=== PATIENT | male | born 1965 | race Caucasian/White ===

== ENCOUNTER 2016-09-13 11:50 | Emergency (ER) | payer BC ==
[~2016-09-13] VITALS: Ht 177.8 cm; Wt 99.5 kg
[~2016-09-13 11:50] MED LIST: IBUP-232 PO; LORTA5 PO
[2016-09-13 11:57] VITALS: BP 186/127; PULSE 96; RESP 16; TEMP 98; O2SAT 96
[2016-09-13] MEDS ORDERED: TRAM50TA PO (12:33)
--- NOTE | 2016-09-13 12:43 | PD ---
HPI Chief Complaint: Musculoskeletal Complaint Time Seen by Provider: 12:16 Travel History International Travel<30 days: No Contact w/Intl Traveler<30days: No Traveled to known affect area: No History of Present Illness HPI This patient complains of left knee pain. He has chronic left knee pain on a daily basis and says he has [id number] arthritis. He does see an orthopedist. No injury today. He discuss a flare of pain and came here because his orthopedist could not fit [facility] Past Medical History Medical History: Denies Significant Hx Hx Anticoagulant Therapy: No Diabetes: No Diminished Hearing: No Immunizations Current: Yes Tetanus Vaccination: < 5 Years Influenza Vaccination: No Past Surgical History Abdominal Surgery: No Social History Alcohol Use: Yes (1-2 BEERS/DAILY) Tobacco Use: Yes (1 1/2 PK) Substance Use: No Allergies-Medications (Allergen,Severity, Reaction): Coded Allergies: No Known Allergies (Verified , 09/13/16) Reported Meds & Prescriptions Reported Meds & Active Scripts Active Tramadol (Tramadol HCl) 50 Mg Tab 50 Mg PO Q6H PRN Review of Systems General / Constitutional: No: Fever HENT: No: Headaches Cardiovascular: No: Chest Pain or Discomfort Respiratory: No: Cough Physical Exam Narrative SKIN: Focused skin assessment reveals no rash or ulcers. Skin is warm and dry. Palpation shows no induration or nodules. Psych: Normal mood and affect. Normal insight and judgment. Left knee: Joint is stable. No erythema or ecchymosis. No effusion Data Data Last Documented VS Vital Signs Date Time Temp Pulse Resp B/P Pulse Ox O2 Delivery O2 Flow Rate FiO2 09/13/16 11:57 98.0 96 16 186/127 96 MDM Medical Decision Making Medical Screen Exam Complete: Yes Emergency Medical Condition: Yes Medical Record Reviewed: Yes Differential Diagnosis Arthritis, contusion, ligament strain Narrative Course I have reviewed the patient's electronic medical record. I wrote him some tramadol for symptom relief. Discussed supportive care such as ice and elevation etc. Follow-up with orthopedist Diagnosis Primary Impression: Arthritis of knee, left Additional Instructions: The patient was advised to follow up with their physician and return if they worsen. The patient was warned about potential sedation for the medications they will receive on prescription. Med/Other Pt SpecificInfo: Prescription(s) given Scripts Tramadol 50 Mg Tab50 Mg PO Q6H PRN (PAIN) #25 TAB Ref 0 Prov:Chriss Norton MD 09/13/16 Disposition: 01 DISCHARGE HOME Condition: Stable Chriss Norton MD September 13, 2016 12:43
[2016-10-26] MEDS ORDERED: WHEEMIS3 (08:28)
[2016-10-26] MEDS ORDERED: COMMODE 3-IN-11 MIS (08:28)
[2016-10-26] MEDS ORDERED: GETGO ROLLING W1 MI1 (08:28)
[2016-10-26] MEDS ORDERED: SENN1TAB PO (13:46)
[2016-10-26] MEDS ORDERED: VITA2000 PO (13:46)
[2016-10-26] MEDS ORDERED: CALCTAB19 PO (13:46)
[2016-10-26] MEDS ORDERED: METO25TA3 PO (13:46)
[2016-10-26] MEDS ORDERED: MORP1TAB25 PO (13:46)
[2016-10-26] MEDS ORDERED: METH500T3 PO (13:46)
[2016-10-26] MEDS ORDERED: OXYC-395 PO (13:46)
[2016-10-26] MEDS ORDERED: GABA600T PO (13:46)
[2016-10-26] MEDS ORDERED: LISI10TA3 PO (13:46)
== END 2016-09-13 12:59 | disposition home or self-care (01) ==
LOC: PHEFT 11:50
DX: M17.12 Unilateral primary osteoarthritis, left knee (principal)
CPT/HCPCS: 99283

== ENCOUNTER 2016-10-06 16:37 | Inpatient (IN) | payer BC, OTHER ==
[2016-10-06] VITALS (7 sets, daily range): BP systolic 148–184; BP diastolic 89–96; PULSE 89–96; RESP 18–31; TEMP 96.7–97.5; O2SAT 92–96
[~2016-10-06] VITALS: Ht 177.8 cm; Wt 104.2 kg
[~2016-10-06 16:37] MED LIST changes: -IBUP-232 PO; -LORTA5 PO; +TRAM50TA PO
[2016-10-06] MEDS ORDERED: DIPHTH/TETANUS/ACEL PERTUSSIS (BOOSTER) 0.5 ML VIAL/PFS IM ONE ×2 (16:44→19:33)
[2016-10-06] MEDS ORDERED: ceFAZolin 2 GM PREMIX 50 ML ONE (16:44)
[2016-10-06] MEDS ORDERED: LIDOCAINE 1%/EPINEPHrine 1:100,000 SOLN 20 ML VIAL ONE (16:48)
[2016-10-06] MEDS ORDERED: MIDAZOLAM HCL 5 MG/ML VIAL (1 ML) ONE (16:50)
[2016-10-06 17:21] LABS: AUTOMATED NEUTROPHIL # 6.5 TH/MM3 (1.8-7.7); BASOPHIL # 0.1 TH/MM3 (0-0.2); BASOPHIL % 0.9 % (0.0-2.0); EOSINOPHIL # 0.2 TH/MM3 (0-0.4); EOSINOPHIL % 1.9 % (0.0-4.0); HEMATOCRIT 43.4 % (39.0-51.0); LYMPH % 31.3 % (9.0-44.0); LYMPHOCYTE # 3.4 TH/MM3 (1.0-4.8); MEAN CELL VOLUME 91.4 FL (80.0-100.0); MEAN CORPUSCULAR HEMOGLOBIN 32.9 PG (27.0-34.0); MONO % 6.9 % (0.0-8.0); PLATELET COUNT 298 TH/MM3 (150-450); RED BLOOD COUNT 4.75 MIL/MM3 (4.50-5.90); RED CELL DISTRIBUTION WIDTH 14.2 % (11.6-17.2)
[2016-10-06 17:22] LABS: HEMO FLAGS AUTO DIFF
[2016-10-06 17:24] LABS: I-STAT POTASSIUM 4.9 MMOL/L (3.5-4.9)
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
[2016-10-06 17:42] LABS: APTT (PATIENT) 22.4 SEC (24.3-30.1); PROTHROMBIN TIME - PATIENT 10.7 SEC (9.8-11.6)
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
[2016-10-06] MEDS ORDERED: ACETAMINOPHEN/HYDROcodone 325 MG/5 MG TAB PO PRN (17:45)
[2016-10-06] MEDS ORDERED: MAGNESIUM HYDROXIDE SUSP 30 ML CUP PO PRN (17:45)
[2016-10-06] MEDS ORDERED: ONDANSETRON HCL 4 MG/2 ML VIAL IV PRN (17:45)
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
[2016-10-06] MEDS ORDERED: LIDOCAINE HCL 1% 50 ML VIAL INFIL ONE (18:00)
[2016-10-06] MEDS ORDERED: LIDOCAINE 1%/EPINEPHrine 1:100,000 SOLN 20 ML VIAL INFIL ONE (18:00)
[2016-10-06 18:06] LABS: PLATELET ESTIMATE SMEAR NORMAL (NORMAL); PLATELET MORPHOLOGY NORMAL (NORMAL); SCAN/DIFF AUTO DIFF CONFIRMED
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
[2016-10-06] MEDS ORDERED: IOHEXOL 350 MG/ML 10 ML VIAL (for RAD DIAG) IV ONE (18:19)
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
[2016-10-06] MEDS ORDERED: LIDOCAINE 1%/EPINEPHrine 1:100,000 SOLN 50 ML VIAL ONE (19:01)
[2016-10-06] MEDS ORDERED: ceFAZolin 2 GM PREMIX 50 ML IV STA (19:33)
[2016-10-06] MEDS: HYDROmorphone HCL PF 1 MG/ML VIAL IVP PRN ×2 (19:43→22:49)
--- NOTE | 2016-10-06 19:52 | PD ---
Physical Exam Narrative I was asked by Dr. Wong to repair patient's right forearm laceration. Please see her documentation for full H&P. Data Data Last Documented VS Vital Signs Date Time Temp Pulse Resp B/P Pulse Ox O2 Delivery O2 Flow Rate FiO2 10/06/16 18:48 97.5 89 18 154/89 96 Nasal Cannula 3 Orders Cefazolin 2 Gm Premix (Ancef 2 Gm Premix (10/06/16 16:44) Toaq-Uld-Ywskdf (Booster) Inj (Boostrix (10/06/16 16:44) Fentanyl Inj (Fentanyl Inj) (10/06/16 16:45) Lidocai-Epi 1%-1:100,000 Inj (Xylocaine- (10/06/16 16:48) Midazolam Inj (Versed Inj) (10/06/16 16:50) I-Stat Profile (10/06/16 16:56) I-Stat Creatinine (10/06/16 16:56) Complete Blood Count With Diff (10/06/16 16:56) Prothrombin Time / Inr (Pt) (10/06/16 16:56) Act Partial Throm Time (Ptt) (10/06/16 16:56) Type And Screen (10/06/16 16:56) Ct Brain W/O Iv Contrast(Rout) (10/06/16 16:56) Ct Cerv Spine W/O Contrast (10/06/16 16:56) Ct Abd/Pel W Iv Contrast(Rout) (10/06/16 16:56) Ct Thorax/ Chest W Iv Contrast (10/06/16 16:56) Ct Thor Spine W/O Contrast (10/06/16 16:56) Ct Lumb Spine W/O Contrast (10/06/16 16:56) Ct Facial Bones W/O Iv Cont (10/06/16 16:56) Iv Access Insert/Monitor (10/06/16 16:56) Ecg Monitoring (10/06/16 16:56) Oximetry (10/06/16 16:56) Oxygen Administration (10/06/16 16:56) Drug Screen, Random Urine (10/06/16 17:18) Alcohol (Ethanol) (10/06/16 17:18) Chest, Single Ap (10/06/16 ) Pelvis, Ap Only (Routine) (10/06/16 ) Forearm (2vws) (10/06/16 ) Ankle, Limited (Ap&Lat) (10/06/16 ) Elbow, One View (10/06/16 ) Splint Post Long Leg Ad Alum (10/06/16 ) Fiberglass Splint Elbow Adult (10/06/16 ) Sling Cradle Arm (10/06/16 ) Admit To Inpatient (10/06/16 ) Vital Signs (Adult) CHARLEE.QSHIFT (10/06/16 17:34) Intake + Output CHARLEE.Q8H (10/06/16 17:34) Neuro Checks CHARLEE.Q4H (10/06/16 17:34) Diet Npo (10/06/16 Dinner) Scd / Winston / Foot Pump CHARLEE.QSHIFT (10/06/16 17:34) Resp Incentive Spirometry (10/06/16 ) ^ Cervical Collar (10/06/16 17:34) ^ Instruction (10/06/16 17:34) Complete Blood Count With Diff (10/07/16 06:00) Comprehensive Metabolic Panel (10/07/16 06:00) Sodium Chlor 0.9% 1000 Ml Inj (Ns 1000 M (10/06/16 19:15) Sodium Chloride 0.9% Flush (Ns Flush) (10/06/16 17:45) Hydromorphone Pf Inj (Dilaudid Pf Inj) (10/06/16 17:45) Acetamin-Hydrocod 325-5 Mg (Loa 5-325 (10/06/16 17:45) Acetamin-Hydrocod 325-5 Mg (Loa 5-325 (10/06/16 17:45) Enalaprilat Inj (Vasotec Inj) (10/06/16 17:45) Ondansetron Inj (Zofran Inj) (10/06/16 17:45) Pantoprazole Inj (Protonix Inj) (10/06/16 20:00) Bacitracin Oint (Baciguent Oint) (10/06/16 21:00) Docusate Sodium (Colace) (10/06/16 21:00) Magnesium Hydroxide Liq (Milk Of Magnesi (10/06/16 17:45) Consult Orthopedic (10/06/16 ) Inpatient Certification (10/06/16 ) Consult Millie Gts (10/06/16 ) (Hub Use Only)Inp Phy Cons/Ref (10/06/16 ) Lidocaine 1% Inj (50 Ml) (Xylocaine 1% I (10/06/16 18:00) Lidocai-Epi 1%-1:100,000 Inj (Xylocaine- (10/06/16 18:00) Iohexol 350 Inj (Omnipaque 350 Inj) (10/06/16 18:19) Lidocai-Epi 1%-1:100,000 Inj (Xylocaine- (10/06/16 19:01) Admit Order (Ed Use Only) (10/06/16 19:02) Labs Laboratory Tests Test 10/06/16 16:44 White Blood Count 11.0 TH/MM3 Red Blood Count 4.75 MIL/MM3 Hemoglobin 15.6 GM/DL Bedside Hemoglobin 16.0 G/DL Hematocrit 43.4 % Bedside Hematocrit 47.0 % Mean Corpuscular Volume 91.4 FL Mean Corpuscular Hemoglobin 32.9 PG Mean Corpuscular Hemoglobin 36.0 % Concent Red Cell Distribution Width 14.2 % Platelet Count 298 TH/MM3 Mean Platelet Volume 8.5 FL Neutrophils (%) (Auto) 59.0 % Lymphocytes (%) (Auto) 31.3 % Monocytes (%) (Auto) 6.9 % Eosinophils (%) (Auto) 1.9 % Basophils (%) (Auto) 0.9 % Neutrophils # (Auto) 6.5 TH/MM3 Lymphocytes # (Auto) 3.4 TH/MM3 Monocytes # (Auto) 0.8 TH/MM3 Eosinophils # (Auto) 0.2 TH/MM3 Basophils # (Auto) 0.1 TH/MM3 CBC Comment AUTO DIFF Differential Comment AUTO DIFF CONFIRMED Platelet Estimate NORMAL Platelet Morphology Comment NORMAL Prothrombin Time 10.7 SEC Prothromb Time International 1.0 RATIO Ratio Activated Partial 22.4 SEC Thromboplast Time Bedside Sodium 138 MMOL/L Bedside Potassium 4.9 MMOL/L Bedside Chloride 101 MMOL/L Bedside Blood Urea Nitrogen 8 MG/DL Bedside Creatinine 1.3 MG/DL Bedside Glucose 130 MG/DL Ethyl Alcohol Level 120 MG/DL Blood Type O NEGATIVE Antibody Screen NEGATIVE MDM Supervised Visit with NABIL: No Narrative Course The patient suffered laceration to the right forearm. There was no evidence to suggest foreign bodies by history and exam. Visual and tactile exams were unremarkable. There was no evidence of neurovascular injury. The patient had a normal distal vascular exam, and had full normal motor and sensory exams. There was also no evidence or tendon injury, with normal distal full range of motions , flexion, extension, abduction, adduction and opponens. There was no evidence of local joint space involvement at this time. The patient was irrigated with copious sterile normal saline and primary repair was performed. Please see procedure note. The patient was given signs and symptom warnings for infection, such as increasing pain, redness, swelling, associated heat, pus or fever. The patient was warned of possible unseen foreign body and instructed to return immediately if signs or symptoms develop. The patient was given instructions for timely follow up and for removal. The patient agreed with plan of care. Procedures Procedure Narrative LACERATION REPAIR LOCATION: Right proximal forearm LENGTH: Approximately 11 cm irregularly shaped NUMBER OF STITCHES/RYNE: 15 [place] REPAIR: Verbal consent was obtained. The area of the laceration was cleaned and prepped. The laceration was infiltrated with lidocaine with epi. The wound was copiously irrigated and explored without evidence of foreign body, bony involvement, ligament injury, tendon injury, or neurovascular injury. The wound was closed using ryne. This was a single layer repair. A sterile dressing was applied by nurse. The patient was advised to keep the affected area as clean and dry as possible using soap and water. There were no complications. Patient tolerated the procedure well. Additional Instruction: Have ryne removed in 10-14 days Scripts No Active Prescriptions or Reported Meds Sim Mejia October 06, 2016 19:52
[2016-10-06] MEDS ORDERED: PANTOPRAZOLE SODIUM 40 MG VIAL IVP SCH (20:00)
[2016-10-06] MEDS ORDERED: DOCUSATE SODIUM 100 MG CAP PO SCH (21:00)
[2016-10-06] MEDS ORDERED: CYCLOBENZAPRINE HCL 10 MG TAB PO PRN (22:00)
[2016-10-06] MEDS: SODIUM CHLOR 0.9% 1000 ML INJ 1,000 ML IV SCH (22:04)
[2016-10-06] MEDS: ENALAPRILAT 1.25 MG/ML VIAL IV PRN (22:25)
[2016-10-06] MEDS ORDERED: LACTATED RINGER'S 1000 ML IV PRN (23:45)
[2016-10-06] MEDS ORDERED: CHLORHEXIDINE GLUCONATE 2 % 1 PACK (2 CLOTHS) TOPICAL PRN (23:45)
[2016-10-06] MEDS ORDERED: INSULIN HUMAN REGULAR 1,000 UNITS/10 ML VIAL SQ PRN (23:45)
[2016-10-06] MEDS ORDERED: POVIDONE IODINE 5% (ANTISEPSIS KIT) 4 APPLICATIONS EACH NARE PRN (23:45)
[2016-10-06] MEDS ORDERED: SODIUM CHLORID 0.9% 500 ML IV PRN (23:45)
[2016-10-06] MEDS: BACITRACIN TOP OINT 15 GM TUBE TOP SCH (23:55)
[2016-10-06] MEDS: ACETAMINOPHEN/HYDROcodone 325 MG/5 MG TAB PO PRN (23:55)
[2016-10-07 00:19] VITALS: BP 184/83; PULSE 90; RESP 19; TEMP 97.7; O2SAT 93
[2016-10-07 01:30] VITALS: BP 169/80; PULSE 86
[2016-10-07] MEDS: HYDROmorphone HCL PF 1 MG/ML VIAL IVP PRN ×5 (02:12→23:53)
[2016-10-07] MEDS: ACETAMINOPHEN/HYDROcodone 325 MG/5 MG TAB PO PRN ×3 (04:35→19:53)
[2016-10-07 06:06] LABS: AUTOMATED NEUTROPHIL # 11.5 TH/MM3 (1.8-7.7); BASOPHIL % 0.2 % (0.0-2.0); HEMATOCRIT 41.7 % (39.0-51.0); HEMO FLAGS DIFF FINAL; MEAN CELL VOLUME 93.1 FL (80.0-100.0); MEAN CORPUSCULAR HEMOGLOBIN 30.8 PG (27.0-34.0); MEAN CORPUSCULAR HGB CONC 33.1 % (32.0-36.0); MONO % 9.8 % (0.0-8.0); PLATELET COUNT 218 TH/MM3 (150-450); RED BLOOD COUNT 4.47 MIL/MM3 (4.50-5.90); WHITE BLOOD COUNT 13.8 TH/MM3 (4.0-11.0)
[2016-10-07] MEDS: SODIUM CHLOR 0.9% 1000 ML INJ 1,000 ML IV SCH (06:13)
[2016-10-07 06:18] LABS: ANION GAP 7 MEQ/L (5-15); AST (GOT) 172 U/L (15-37); BICARBONATE 27.4 MEQ/L (21.0-32.0); BLOOD UREA NITROGEN 9 MG/DL (7-18); CHLORIDE 104 MEQ/L (98-107); GLOMERULAR FILTRATION RATE 80 ML/MIN (>89); POTASSIUM 3.8 MEQ/L (3.5-5.1); SODIUM (NA) 138 MEQ/L (136-145)
[2016-10-07 06:19] LABS: ALT (GPT) 151 U/L (12-78)
[2016-10-07 06:21] LABS: ALKALINE PHOSPHATASE 90 U/L (45-117); TOTAL BILIRUBIN ADULT 0.7 MG/DL (0.2-1.0)
[2016-10-07 06:24] VITALS: BP 172/80; PULSE 87; RESP 19; TEMP 97.9; O2SAT 92
[2016-10-07 08:00] VITALS: BP 180/90; PULSE 78; RESP 20; TEMP 96.3; O2SAT 94
[2016-10-07] MEDS: REMOVE OLD LIDOCAINE PATCH T-DERMAL SCH (08:00)
[2016-10-07] MEDS ORDERED: PILL SPLITTER OTHER PRN (08:00)
[2016-10-07] MEDS: METHOCARBAMOL 500 MG TAB PO SCH ×3 (08:00→23:53)
[2016-10-07] MEDS: ENALAPRILAT 1.25 MG/ML VIAL IV PRN (08:40)
[2016-10-07] MEDS: LIDOCAINE HCL 5% PATCH T-DERMAL SCH (08:42)
[2016-10-07] MEDS: DOCUSATE SODIUM 50 MG/SENNA 8.6 MG TAB PO SCH ×2 (08:51→21:21)
[2016-10-07] MEDS: BACITRACIN TOP OINT 15 GM TUBE TOP SCH ×3 (08:51→21:21)
[2016-10-07] MEDS: LISINOPRIL 20 MG TAB PO SCH ×2 (09:00→14:51)
[2016-10-07] MEDS: hydrALAZINE HCL 25 MG TAB PO SCH ×3 (09:00→21:20)
[2016-10-07] MEDS ORDERED: FAMOTIDINE 20 MG/2 ML VIAL ONE (09:39)
[2016-10-07] MEDS ORDERED: HYDROmorphone HCL PF 2 MG/ML VIAL ONE (09:39)
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
[2016-10-07] MEDS ORDERED: ACETAMINOPHEN 1000 MG/100 ML VIAL IV ONE (09:53)
[2016-10-07] MEDS ORDERED: DEXAMETHASONE SOD PHOS 4 MG/ML VIAL ONE (09:53)
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
[2016-10-07] MEDS ORDERED: ceFAZolin 2 GM PREMIX 50 ML ONE (11:22)
[2016-10-07] MEDS ORDERED: PROPOFOL 200 MG/20 ML AMP IV ONE (11:47)
[2016-10-07] MEDS ORDERED: ONDANSETRON HCL 4 MG/2 ML VIAL IV PUSH ONE (11:47)
[2016-10-07] MEDS ORDERED: NEOSTIGMINE 3 MG/3 ML SYR IV ONE (11:47)
[2016-10-07] MEDS ORDERED: LACTATED RINGER'S 1000 ML INJ 1,000 ML IV ONE (11:47)
[2016-10-07] MEDS ORDERED: BACITRACIN TOP OINT 15 GM TUBE TOPICAL ONE (12:00)
[2016-10-07] MEDS: LACTATED RINGER'S 1000 ML INJ 1,000 ML IV SCH ×2 (12:17→22:20)
--- NOTE | 2016-10-07 12:20 | PD.OP ---
cc: Esvin Gonsalez MD Operative Report Date of Surgery: Oct 07, 2016 Preoperative Diagnosis: Comminuted left distal tibia and fibula fractures Postoperative Diagnosis: Procedure: External fixation left ankle, closed reduction with manipulation of left distal tibia and fibula fractures Anesthesia: Gen. Surgeon: Esvin Gonsalez Sole Conditioner(s): TIFF Villanueva PA-C The surgical procedure was assisted by my physician cashier assistant. My P.A. presence was necessary throughout this case for the manipulation and positioning of the surgical extremity. My P.A. was assisting me throughout the duration of this procedure. The skill set of a physician cashier assistant was medically necessary to complete this procedure. During the surgical case the surgical processor was working at the back table and the physician cashier assistant was directly assisting me. Operation and Findings: This patient sustained an injury resulting in unstable fractures of the left distal tibia and fibula. Patient was seen and evaluated preoperatively and found to have too much swelling to proceed with open reduction internal fixation. Risk and benefits of surgery were discussed in depth with patient and informed consent was confirmed. Surgical site was marked. Patient was brought to operating room and placed on the OR table. Patient was given IV sedation and GETA. Patient received IV antibiotics and timeout procedure was performed. Operative leg was prepped with alcohol followed by Hibiclens and draped in the usual sterile fashion.resulting in left tibia-fibula fractures. Timeout procedure was performed. The procedure began with placement of external fixation. Two percutaneous incisions were made over the tibia. Pin sites were pre-drilled. Synthes HAY- coated pins were placed from anterior to posterior in the tibia shaft. An additional transfixion pin was placed through the calcaneus. Pins were also placed in the first and fifth metatarsals. An external fixator was now constructed. Fluoroscopy was used to confirm appropriate pin placement Next attention was turned to traction with manipulation of the leg. The fracture was manipulated under fluoroscopy. Excellent reduction was achieved. With the fracture held in reduced position, the external fixator was tightened. Fluoroscopy confirmed a well-placed external fixation with well-aligned fractures. Sterile dressings were applied. The patient was awakened and transferred to Recovery in stable condition. The soft tissue was reevaluated. Patient did have swelling around the ankle and calf but compartments were soft and compressible with no signs of compartment syndrome. Esvin Gonsalez MD Oct 07, 2016 12:20
[2016-10-07] MEDS ORDERED: Post-op Orders (for Pharmacy) MISC XX ONE (12:30)
[2016-10-07] MEDS ORDERED: ACETAMINOPHEN/HYDROcodone 325 MG/7.5 MG TAB PO PRN (12:30)
[2016-10-07] MEDS ORDERED: diphenhydrAMINE HCL 25 MG CAP PO PRN (12:30)
[2016-10-07] MEDS ORDERED: SODIUM CHLORIDE 0.9% FLUSH 5 ML FLUSH IVF PRN (12:30)
[2016-10-07] MEDS ORDERED: MORPHINE SULFATE 4 MG/ML INJ IV PUSH PRN (12:30)
[2016-10-07] MEDS ORDERED: MIDAZOLAM HCL 2 MG/2 ML VIAL ONE (12:44)
[2016-10-07] MEDS ORDERED: fentaNYL CITRATE 250 MCG/5 ML AMP ONE (12:44)
[2016-10-07] MEDS ORDERED: LABETALOL HCL 100 MG/20 ML VIAL ONE (12:52)
[2016-10-07] MEDS ORDERED: *morphine SULFATE 8 MG/ML PERIprocedure ONLY ONE ×2 (12:53→13:31)
[2016-10-07] MEDS ORDERED: DO NOT ADM ANY ANTICOAGULANT DRUGS PRN (13:00)
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
[2016-10-07] MEDS: KETOROLAC TROMETHAMINE 30 MG/ML (IVP) VIAL IVP SCH ×2 (13:40→22:18)
--- NOTE | 2016-10-07 15:01 | HHI.PR ---
Subjective Subjective Notes S/P LEFT ankle reduction and placement of external fixator C/O left ankle pain Objective Vitals/I&O Vital Signs Date Time Temp Pulse Resp B/P Pulse Ox O2 Delivery O2 Flow Rate FiO2 10/07/16 12:40 96.8 83 15 203/89 95 Simple Mask 6 Labs Laboratory Tests Test 10/06/16 10/07/16 16:44 05:16 White Blood Count 11.0 13.8 Red Blood Count 4.75 4.47 Hemoglobin 15.6 13.8 Bedside Hemoglobin 16.0 Hematocrit 43.4 41.7 Bedside Hematocrit 47.0 Mean Corpuscular Volume 91.4 93.1 Mean Corpuscular Hemoglobin 32.9 30.8 Mean Corpuscular Hemoglobin 36.0 33.1 Concent Red Cell Distribution Width 14.2 14.0 Platelet Count 298 218 Mean Platelet Volume 8.5 8.4 Neutrophils (%) (Auto) 59.0 83.0 Lymphocytes (%) (Auto) 31.3 7.0 Monocytes (%) (Auto) 6.9 9.8 Eosinophils (%) (Auto) 1.9 0.0 Basophils (%) (Auto) 0.9 0.2 Neutrophils # (Auto) 6.5 11.5 Lymphocytes # (Auto) 3.4 1.0 Monocytes # (Auto) 0.8 1.4 Eosinophils # (Auto) 0.2 0.0 Basophils # (Auto) 0.1 0.0 CBC Comment AUTO DIFF DIFF FINAL Differential Comment AUTO DIFF CONFIRMED Platelet Estimate NORMAL Platelet Morphology Comment NORMAL Prothrombin Time 10.7 Prothromb Time International 1.0 Ratio Activated Partial 22.4 Thromboplast Time Bedside Sodium 138 Bedside Potassium 4.9 Bedside Chloride 101 Bedside Blood Urea Nitrogen 8 Bedside Creatinine 1.3 Bedside Glucose 130 Ethyl Alcohol Level 120 Blood Type O NEGATIVE Antibody Screen NEGATIVE Sodium Level 138 Potassium Level 3.8 Chloride Level 104 Carbon Dioxide Level 27.4 Anion Gap 7 Blood Urea Nitrogen 9 Creatinine 1.00 Estimat Glomerular Filtration 80 Rate Random Glucose 143 Calcium Level 7.8 Total Bilirubin 0.7 Aspartate Amino Transf 172 (AST/SGOT) Alanine Aminotransferase 151 (ALT/SGPT) Alkaline Phosphatase 90 Total Protein 6.4 Albumin 2.8 Radiology Last Impressions Chest X-Ray 10/07/16 0000 Signed Impressions: Service Date/Time: October 08:33 - CONCLUSION: No pneumothorax is visualized. Lungs are underinflated with mild atelectasis at the lung bases. Laureano Haynes MD Ankle X-Ray 10/07/16 0000 Signed Impressions: Service Date/Time: October 12:08 - CONCLUSION: Distal tibia and fibular fractures again seen. Taz Cárdenas MD Thoracic Spine CT 10/06/161655 Signed Impressions: Service Date/Time: Thursday, October 06, 2016 17:14 - CONCLUSION: 1. No fracture or dislocation. 2. 8 mm soft tissue nodule on the left neural foramen at T4. This likely relates to a small schwannoma. An outpatient followup MRI of the thoracic spine with and without gadolinium suggested. Gus Cornelius Jr., MD Maxillofacial CT 10/06/161655 Signed Impressions: Service Date/Time: Thursday, October 06, 2016 17:06 - CONCLUSION: No evidence of fracture. Taz Cárdenas MD Lumbar Spine CT 10/06/161655 Signed Impressions: Service Date/Time: Thursday, October 06, 2016 17:14 - CONCLUSION: 1. Mild multilevel degenerative disc disease with marginal spurring at multiple mid and lower lumbar levels. 2. No acute fracture. Minimal Grade I retrolisthesis of L5 on S1 is probably due to facet degeneration. 3. Mild, diffuse disc bulge at L4-5 with facet hypertrophy minimally encroaches on the spinal canal but the spinal canal and neural foramina appear to be adequate throughout. 4. Not mentioned above, mild ectasia of the distal aorta measuring 2.7 cm in the greatest AP dimension just above the bifurcation. No aneurysmal disease. Darryl Cordero MD Head CT 10/06/161655 Signed Impressions: Service Date/Time: Thursday, October 06, 2016 17:06 - CONCLUSION: No acute intracranial findings. Taz Cárdenas MD Chest CT 10/06/161655 Signed Impressions: Service Date/Time: Thursday, October 06, 2016 17:14 - CONCLUSION: Third and fifth rib fractures on the right. Very small right pneumothorax. Taz Cárdenas MD Cervical Spine CT 10/06/161655 Signed Impressions: Service Date/Time: Thursday, October 06, 2016 17:06 - CONCLUSION: No evidence of fracture. Taz Cárdenas MD Abdomen/Pelvis CT 10/06/161655 Signed Impressions: Service Date/Time: Thursday, October 06, 2016 17:14 - CONCLUSION: 1. Multiple rounded hypodensities in the right lobe of the liver. This finding is nonspecific and may represent multiple cysts, ductal dilatation or other hepatic lesions. Not a typical finding for acute traumatic injury. Recommend routine followup abdominal MRI with and without contrast. 2. No other acute findings in the abdomen and pelvis. Taz Cárdenas MD Radius/Ulna X-Ray 10/06/16 0000 Signed Impressions: Service Date/Time: Thursday, October 06, 2016 16:32 - CONCLUSION: Complete radial dislocation of the elbow joint. Darryl Cordero MD Pelvis X-Ray 10/06/16 0000 Signed Impressions: Service Date/Time: Thursday, October 06, 2016 16:32 - CONCLUSION: No acute osseous injury. Darryl Cordero MD Elbow X-Ray 10/06/16 0000 Signed Impressions: Service Date/Time: Thursday, October 06, 2016 16:32 - CONCLUSION: 1. Successful reduction of the previously dislocated elbow. 2. Radiopaque densities along the anterior aspect of the elbow joint may represent small avulsion fractures or radiopaque foreign bodies in the overlying soft tissues. Additional views would be useful for further evaluation if clinically warranted. Darryl Cordero MD Narrative Exam GENERAL: 50 year old male lying in bed. SKIN: Warm and dry. Scattered abrasions noted. CARDIOVASCULAR: Regular rate and rhythm. RESPIRATORY: No accessory muscle use. Clear and diminished to auscultation. Breath sounds equal bilaterally. GASTROINTESTINAL: Abdomen soft, non-tender, nondistended. MUSCULOSKELETAL: Extremities without cyanosis, or edema. LLE ex-fix in place. MARTINES. LUE soft splint in place. + pulses x4. NEUROLOGICAL: Awake and alert. Normal speech. A/P Assessment and Plan INJURIES: LEFT tib/fib fx RIGHT rib fxs (3,4) Small RIGHT PTX RIGHT forearm avulsion (sutures) LEFT elbow dislocation 10/06 LEFT elbow reduced 10/07: LEFT ankle reduction and placement of external fixator PMHx: Tobacco abuse, HTN Diet: NPO Pulm: IS, encouraged use Pain: [place], IV Dilaudid, Robaxin, Lidoderm patch, IV Toradol Activity: OOB. PT and OT ordered. (NWB LUE, NWB LLE) GI: IV Protonix Bowel: Mara-colace 2 tabs BID, MOM. DVT: SCDs LEFT tib/fib fx Orthopedics consulted 10/07: LEFT ankle reduction and placement of external fixator Pin care BID Ortho plans ORIF of the ankle in 7-10 days NWB LLE PT- OOB Pain control RIGHT rib fxs (3,4) Pain control Supportive care Pulmonary toileting OOB Small RIGHT PTX Resolved without intervention CXR today shows no PTX, mild atelectasis Pulmonary toileting RIGHT forearm avulsion Cleanse with soap and water daily. May leave open to air, unless draining LEFT elbow dislocation Reduced in ED F/U X-ray shows good alignment NWB LUE- splint Supportive care Pain control OT HTN No known hx per patient Started Lisinopril and Hydralazine. Reassess in AM Pain control Case management consulted to assist with discharge planning. Vinny De Jesus Oct 07, 2016 15:01
[2016-10-07] MEDS ORDERED: hydrALAZINE HCL 20 MG/ML VIAL IV ONE (15:30)
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
--- NOTE | 2016-10-07 15:47 | RADRPT ---
EXAM DATE/TIME: 10/07/2016 12:08 [place] COMPARISON: ANKLE LEFT LIMITED (AP&LAT), October 06, 2016, 16:32. INDICATIONS : Left ankle fracture external fixation. MEDICAL HISTORY : None. SURGICAL HISTORY : None. ENCOUNTER: Initial ACUITY: 1 day PAIN SCORE: Non-responsive. LOCATION: Left ankle FINDINGS: 2 intraoperative spot images of the left ankle. Comminuted fracture of the distal tibia and fracture of the distal tibial shaft again seen. CONCLUSION: Distal tibia and fibular fractures again seen. Taz Cárdenas MD on October 07, 2016 at 15:44 Board Certified Radiologist. This report was verified electronically.
[2016-10-07 16:00] VITALS: BP 171/86; PULSE 90; RESP 20; TEMP 99.3; O2SAT 97
[2016-10-07 16:13] LABS: AMPHETAMINE, URINE NEG (NEG); BARBITURATES, URINE NEG (NEG); COCAINE, URINE NEG (NEG)
[2016-10-07 20:12] VITALS: BP 156/81; PULSE 88; RESP 18; TEMP 96.7; O2SAT 93
[2016-10-07] MEDS: SODIUM CHLORIDE 0.9% FLUSH 5 ML FLUSH IVF SCH (21:00)
[2016-10-07] MEDS: FAMOTIDINE 20 MG TAB PO SCH (21:20)
[2016-10-08] VITALS (12 sets, daily range): BP systolic 171–218; BP diastolic 84–95; PULSE 74–89; RESP 17–20; TEMP 96.8–98.5; O2SAT 92–96
[2016-10-08] MEDS: ENALAPRILAT 1.25 MG/ML VIAL IV PRN (00:43)
[2016-10-08] MEDS: ACETAMINOPHEN/HYDROcodone 325 MG/5 MG TAB PO PRN ×4 (03:31→21:59)
[2016-10-08 04:13] LABS: HEMATOCRIT 37.6 % (39.0-51.0); REVIEW FLAG FINAL
[2016-10-08] MEDS: KETOROLAC TROMETHAMINE 30 MG/ML (IVP) VIAL IVP SCH ×3 (05:50→22:58)
--- NOTE | 2016-10-08 07:51 | PD.ORT.PN ---
Subjective Subjective Remarks Pain controlled. No new complaints Objective Vitals Vital Signs Date Time Temp Pulse Resp B/P Pulse Ox O2 Delivery O2 Flow Rate FiO2 10/08/16 04:15 97.4 82 18 175/90 95 10/08/16 01:35 84 171/84 10/08/16 00:30 189/90 10/08/16 00:00 97.9 89 17 192/92 95 10/07/16 20:12 96.7 88 18 156/81 93 10/07/16 16:00 99.3 90 20 171/86 97 10/07/16 14:00 98.1 83 17 171/92 95 Nasal Cannula 3 10/07/16 13:45 81 17 182/89 94 Nasal Cannula 3 10/07/16 13:30 85 17 172/94 94 Nasal Cannula 3 10/07/16 13:15 81 17 164/90 95 Nasal Cannula 3 10/07/16 13:00 82 17 171/93 93 Nasal Cannula 3 10/07/16 12:45 83 15 187/92 93 Simple Mask 6 10/07/16 12:40 96.8 83 15 203/89 95 Simple Mask 6 10/07/16 08:00 96.3 78 20 180/90 94 I/O 10/07/16 10/07/16 10/07/16 10/08/16 10/08/16 10/08/16 07:00 15:00 23:00 07:00 15:00 23:00 Intake Total 779 ml 2000 ml 1288 ml 550 ml Output Total 0 ml 550 ml 550 ml 475 ml Balance 779 ml 1450 ml 738 ml 75 ml Intake Oral 0 ml 600 ml 240 ml IV Total 779 ml 500 ml 688 ml 310 ml Other 1500 ml Output Urine Total 0 ml 550 ml 550 ml 475 ml # Voids 3 2 # Bowel Movements 0 0 0 Result Diagram: 10/08/16 0353 10/07/16 0516 Imaging Last 24 hours Impressions Chest X-Ray 10/07/16 0000 Signed Impressions: Service Date/Time: October 08:33 - CONCLUSION: No pneumothorax is visualized. Lungs are underinflated with mild atelectasis at the lung bases. Laureano Haynes MD Thoracic Spine CT 10/06/16 1656 Signed Impressions: Service Date/Time: Thursday, October 06, 2016 17:14 - CONCLUSION: 1. No fracture or dislocation. 2. 8 mm soft tissue nodule on the left neural foramen at T4. This likely relates to a small schwannoma. An outpatient followup MRI of the thoracic spine with and without gadolinium suggested. Gus Cornelius Jr., MD Maxillofacial CT 10/06/161655 Signed Impressions: Service Date/Time: Thursday, October 06, 2016 17:06 - CONCLUSION: No evidence of fracture. Taz Cárdenas MD Lumbar Spine CT 10/06/161655 Signed Impressions: Service Date/Time: Thursday, October 06, 2016 17:14 - CONCLUSION: 1. Mild multilevel degenerative disc disease with marginal spurring at multiple mid and lower lumbar levels. 2. No acute fracture. Minimal Grade I retrolisthesis of L5 on S1 is probably due to facet degeneration. 3. Mild, diffuse disc bulge at L4-5 with facet hypertrophy minimally encroaches on the spinal canal but the spinal canal and neural foramina appear to be adequate throughout. 4. Not mentioned above, mild ectasia of the distal aorta measuring 2.7 cm in the greatest AP dimension just above the bifurcation. No aneurysmal disease. Darryl Cordero MD Head CT 10/06/161655 Signed Impressions: Service Date/Time: Thursday, October 06, 2016 17:06 - CONCLUSION: No acute intracranial findings. Taz Cárdenas MD Chest CT 10/06/161655 Signed Impressions: Service Date/Time: Thursday, October 06, 2016 17:14 - CONCLUSION: Third and fifth rib fractures on the right. Very small right pneumothorax. Taz Cárdenas MD Cervical Spine CT 10/06/161655 Signed Impressions: Service Date/Time: Thursday, October 06, 2016 17:06 - CONCLUSION: No evidence of fracture. Taz Cárdenas MD Abdomen/Pelvis CT 10/06/161655 Signed Impressions: Service Date/Time: Thursday, October 06, 2016 17:14 - CONCLUSION: 1. Multiple rounded hypodensities in the right lobe of the liver. This finding is nonspecific and may represent multiple cysts, ductal dilatation or other hepatic lesions. Not a typical finding for acute traumatic injury. Recommend routine followup abdominal MRI with and without contrast. 2. No other acute findings in the abdomen and pelvis. Taz Cárdenas MD Objective Remarks Left upper extremity: Long arm splint intact. Distally intact sensation over the radial ulnar and median nerve distributions with good capillary refills. He is able to extend his fingers and make a fist. Left lower extremity: Clean dressings intact with external fixator in place. Swelling +2. Intact sensation distally in all his toes and is able to move all toes appropriately Assessment & Plan Assessment and Plan Left tibial pilon fracture POD 1 external fixation Left elbow dislocation - reduced in the emergency room and splinted Nonweightbearing left lower extremity left upper extremity Maintain splint left upper extremity Pin care twice a day for left ankle Ice and elevation Lovenox Nothing by mouth after midnight on Tuesday night for possible surgery on Tuesday for left tibial pilon fracture Julio Moses Jr. DIANE Oct 08, 2016 07:51
[2016-10-08] MEDS: REMOVE OLD LIDOCAINE PATCH T-DERMAL SCH (08:00)
[2016-10-08] MEDS: METHOCARBAMOL 500 MG TAB PO SCH ×2 (08:32→16:29)
[2016-10-08] MEDS: SODIUM CHLORIDE 0.9% FLUSH 5 ML FLUSH IVF SCH ×2 (08:32→21:00)
[2016-10-08] MEDS: hydrALAZINE HCL 25 MG TAB PO SCH (08:32)
[2016-10-08] MEDS: FAMOTIDINE 20 MG TAB PO SCH ×2 (08:32→21:58)
[2016-10-08] MEDS: LISINOPRIL 20 MG TAB PO SCH (08:32)
[2016-10-08] MEDS: LIDOCAINE HCL 5% PATCH T-DERMAL SCH (08:33)
[2016-10-08] MEDS: DOCUSATE SODIUM 50 MG/SENNA 8.6 MG TAB PO SCH ×2 (08:36→21:58)
[2016-10-08] MEDS: BACITRACIN TOP OINT 15 GM TUBE TOP SCH ×2 (08:37→22:58)
[2016-10-08] MEDS: HYDROmorphone HCL PF 1 MG/ML VIAL IVP PRN ×3 (11:50→22:58)
[2016-10-08] MEDS: hydrALAZINE HCL 50 MG TAB PO SCH ×2 (13:13→21:58)
--- NOTE | 2016-10-08 13:20 | HHI.PR ---
Subjective Subjective Notes Reports his "BP has been xuan high in the past, but not too bad" Pain controlled Objective Vitals/I&O Vital Signs Date Time Temp Pulse Resp B/P Pulse Ox O2 Delivery O2 Flow Rate FiO2 10/08/16 12:20 18 10/08/16 08:00 98.5 82 186/90 95 10/07/16 14:00 Nasal Cannula 3 Labs Laboratory Tests Test 10/07/16 10/08/16 15:30 03:53 Urine Opiates Screen POS Urine Barbiturates Screen NEG Urine Amphetamines Screen NEG Urine Benzodiazepines Screen POS Urine Cocaine Screen NEG Urine Cannabinoids Screen NEG Hemoglobin 12.8 Hematocrit 37.6 Radiology Last Impressions Chest X-Ray 10/07/16 0000 Signed Impressions: Service Date/Time: October 08:33 - CONCLUSION: No pneumothorax is visualized. Lungs are underinflated with mild atelectasis at the lung bases. Laureano Haynes MD Ankle X-Ray 10/07/16 0000 Signed Impressions: Service Date/Time: October 12:08 - CONCLUSION: Distal tibia and fibular fractures again seen. Taz Cárdenas MD Thoracic Spine CT 10/06/161655 Signed Impressions: Service Date/Time: Thursday, October 06, 2016 17:14 - CONCLUSION: 1. No fracture or dislocation. 2. 8 mm soft tissue nodule on the left neural foramen at T4. This likely relates to a small schwannoma. An outpatient followup MRI of the thoracic spine with and without gadolinium suggested. Gus Cornelius Jr., MD Maxillofacial CT 10/06/161655 Signed Impressions: Service Date/Time: Thursday, October 06, 2016 17:06 - CONCLUSION: No evidence of fracture. Taz Cárdenas MD Lumbar Spine CT 10/06/161655 Signed Impressions: Service Date/Time: Thursday, October 06, 2016 17:14 - CONCLUSION: 1. Mild multilevel degenerative disc disease with marginal spurring at multiple mid and lower lumbar levels. 2. No acute fracture. Minimal Grade I retrolisthesis of L5 on S1 is probably due to facet degeneration. 3. Mild, diffuse disc bulge at L4-5 with facet hypertrophy minimally encroaches on the spinal canal but the spinal canal and neural foramina appear to be adequate throughout. 4. Not mentioned above, mild ectasia of the distal aorta measuring 2.7 cm in the greatest AP dimension just above the bifurcation. No aneurysmal disease. Darryl Cordero MD Head CT 10/06/161655 Signed Impressions: Service Date/Time: Thursday, October 06, 2016 17:06 - CONCLUSION: No acute intracranial findings. Taz Cárdenas MD Chest CT 10/06/161655 Signed Impressions: Service Date/Time: Thursday, October 06, 2016 17:14 - CONCLUSION: Third and fifth rib fractures on the right. Very small right pneumothorax. Taz Cárdenas MD Cervical Spine CT 10/06/161655 Signed Impressions: Service Date/Time: Thursday, October 06, 2016 17:06 - CONCLUSION: No evidence of fracture. Taz Cárdenas MD Abdomen/Pelvis CT 10/06/161655 Signed Impressions: Service Date/Time: Thursday, October 06, 2016 17:14 - CONCLUSION: 1. Multiple rounded hypodensities in the right lobe of the liver. This finding is nonspecific and may represent multiple cysts, ductal dilatation or other hepatic lesions. Not a typical finding for acute traumatic injury. Recommend routine followup abdominal MRI with and without contrast. 2. No other acute findings in the abdomen and pelvis. Taz Cárdenas MD Radius/Ulna X-Ray 10/06/16 Signed Impressions: Service Date/Time: Thursday, October 06, 2016 16:32 - CONCLUSION: Complete radial dislocation of the elbow joint. Darryl Cordero MD Pelvis X-Ray 10/06/16 Signed Impressions: Service Date/Time: Thursday, October 06, 2016 16:32 - CONCLUSION: No acute osseous injury. Darryl Cordero MD Elbow X-Ray 10/06/16 Signed Impressions: Service Date/Time: Thursday, October 06, 2016 16:32 - CONCLUSION: 1. Successful reduction of the previously dislocated elbow. 2. Radiopaque densities along the anterior aspect of the elbow joint may represent small avulsion fractures or radiopaque foreign bodies in the overlying soft tissues. Additional views would be useful for further evaluation if clinically warranted. Darryl Cordero MD Narrative Exam GENERAL: 50 year old male lying in bed in no acute distress. SKIN: Warm and dry. Scattered abrasions noted to LEFT face. Bulky dry dressing to head. CARDIOVASCULAR: Regular rate and rhythm. RESPIRATORY: No accessory muscle use. Clear and diminished to auscultation. Breath sounds equal bilaterally. GASTROINTESTINAL: Abdomen soft, non-tender, nondistended. MUSCULOSKELETAL: Extremities without cyanosis, or edema. LLE ex-fix in place. MARTINES. LUE soft splint in place. + pulses x4. NEUROLOGICAL: Awake and alert. Normal speech. A/P Assessment and Plan INJURIES: LEFT tib/fib fx RIGHT rib fxs (3,4) Small RIGHT PTX RIGHT forearm avulsion (sutures) LEFT elbow dislocation 10/06 LEFT elbow reduced 10/07: LEFT ankle reduction and placement of external fixator PMHx: Tobacco abuse, HTN Diet: Regular Pulm: IS, encouraged use Pain: [place], IV Dilaudid, Robaxin, Lidoderm patch, IV Toradol Activity: OOB. PT and OT ordered. (NWB LUE, NWB LLE) GI: IV Protonix Bowel: Mara-colace 2 tabs BID, MOM. No BM yet. DVT: SCDs LEFT tib/fib fx Orthopedics consulted 10/07: LEFT ankle reduction and placement of external fixator Pin care BID Ortho plans ORIF of the ankle in 7-10 days NWB LLE PT- OOB Pain control RIGHT rib fxs (3,4) Pain control Supportive care Pulmonary toileting OOB Small RIGHT PTX Resolved without intervention 10/07: CXR shows no PTX, mild atelectasis Pulmonary toileting RIGHT forearm avulsion Cleanse with soap and water daily. May leave open to air, unless draining LEFT elbow dislocation Reduced in ED F/U X-ray shows good alignment NWB LUE- splint Supportive care Pain control OT HTN No home HTN meds Lisinopril 20mg QD Increased Hydralazine to 50mg q8 Hospitalist consult for medical management Pain control Case management consulted to assist with discharge planning. The exam, history, and the medical decision-making described in the above note were completed with the assistance of the mid-level provider. I reviewed and agree with the findings presented. I attest that I had a [id number] encounter with the patient on the same day, and personally performed and documented my assessment and findings in the medical record. Vinny De Jesus Oct 08, 2016 13:20 Steven Eldridge MD Oct 09, 2016 14:05
[2016-10-08] MEDS ORDERED: METOPROLOL TARTRATE 25 MG TAB PO ONE (16:30)
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
[2016-10-08] MEDS: ENALAPRILAT 2.5 MG/2 ML VIAL IV PUSH PRN (18:04)
[2016-10-08] MEDS: ENOXAPARIN SODIUM 40 MG/0.4 ML SYRINGE SQ SCH (19:32)
[2016-10-08 21:50] LABS: AUTOMATED NEUTROPHIL # 9.4 TH/MM3 (1.8-7.7); BASOPHIL # 0.1 TH/MM3 (0-0.2); EOSINOPHIL # 0.1 TH/MM3 (0-0.4); EOSINOPHIL % 1.1 % (0.0-4.0); HEMATOCRIT 35.9 % (39.0-51.0); HEMO FLAGS DIFF FINAL; LYMPH % 13.7 % (9.0-44.0); LYMPHOCYTE # 1.7 TH/MM3 (1.0-4.8); MEAN CELL VOLUME 91.6 FL (80.0-100.0); MEAN CORPUSCULAR HEMOGLOBIN 31.2 PG (27.0-34.0); MEAN CORPUSCULAR HGB CONC 34.1 % (32.0-36.0); NEUT % 76.2 % (16.0-70.0); PLATELET COUNT 221 TH/MM3 (150-450); RED BLOOD COUNT 3.92 MIL/MM3 (4.50-5.90); RED CELL DISTRIBUTION WIDTH 14.2 % (11.6-17.2); WHITE BLOOD COUNT 12.4 TH/MM3 (4.0-11.0)
[2016-10-08] MEDS: METOPROLOL TARTRATE 25 MG TAB PO SCH (21:58)
[2016-10-08] MEDS: SODIUM CHLORIDE 0.9% FLUSH 10 ML FLUSH IV FLUSH PRN (21:59)
[2016-10-08 22:36] LABS: HEMOGLOBIN A1a 1.5 %; HEMOGLOBIN A1b 0.8 %; HEMOGLOBIN Ao 84.3 %; HEMOGLOBIN F 1.5 %; HEMOGLOBIN LA1C 2.2 %; HEMOGLOBIN P3 3.8 %
[2016-10-09] VITALS (8 sets, daily range): BP systolic 105–228; BP diastolic 88–109; PULSE 61–80; RESP 16–22; TEMP 96–97.8; O2SAT 92–95
[2016-10-09] MEDS: hydrALAZINE HCL 10 MG TAB PO PRN ×2 (02:01→14:51)
[2016-10-09] MEDS: METHOCARBAMOL 500 MG TAB PO SCH ×4 (02:01→23:48)
[2016-10-09] MEDS: ACETAMINOPHEN/HYDROcodone 325 MG/5 MG TAB PO PRN ×5 (02:02→18:42)
[2016-10-09] MEDS: HYDROmorphone HCL PF 1 MG/ML VIAL IVP PRN ×4 (04:28→21:36)
[2016-10-09] MEDS: ENALAPRILAT 2.5 MG/2 ML VIAL IV PUSH PRN ×2 (04:29→11:40)
[2016-10-09] MEDS: KETOROLAC TROMETHAMINE 30 MG/ML (IVP) VIAL IVP SCH (06:46)
[2016-10-09] MEDS: hydrALAZINE HCL 50 MG TAB PO SCH ×3 (06:47→21:35)
[2016-10-09 07:06] LABS: ALT (GPT) 77 U/L (12-78)
[2016-10-09 07:08] LABS: ALKALINE PHOSPHATASE 75 U/L (45-117); ANION GAP 5 MEQ/L (5-15); BICARBONATE 28.9 MEQ/L (21.0-32.0); BLOOD UREA NITROGEN 14 MG/DL (7-18); CHLORIDE 106 MEQ/L (98-107); GLOMERULAR FILTRATION RATE 92 ML/MIN (>89); HDL CHOLESTEROL 39.5 MG/DL (40.0-60.0); LDL CHOLESTEROL 81 MG/DL (0-99); SODIUM (NA) 140 MEQ/L (136-145); TOTAL BILIRUBIN ADULT 0.6 MG/DL (0.2-1.0)
[2016-10-09 07:09] LABS: AST (GOT) 69 U/L (15-37); POTASSIUM 4.2 MEQ/L (3.5-5.1)
--- NOTE | 2016-10-09 07:44 | PD.ORT.PN ---
Subjective Subjective Remarks pt complains of post op pain, no other complaints Objective Vitals Vital Signs Date Time Temp Pulse Resp B/P Pulse Ox O2 Delivery O2 Flow Rate FiO2 10/09/16 04:00 97.2 61 16 196/91 94 10/08/16 23:48 97.0 74 19 218/93 92 10/08/16 19:57 18 10/08/16 19:40 Room Air 10/08/16 19:00 97.2 74 18 204/93 95 10/08/16 17:30 18 10/08/16 16:37 95 Nasal Cannula 3.00 10/08/16 16:00 96.9 82 20 182/85 96 10/08/16 14:13 18 10/08/16 14:06 95 Nasal Cannula 3.00 10/08/16 13:15 178/88 10/08/16 13:00 96.8 89 20 205/95 94 10/08/16 08:00 98.5 82 20 186/90 95 I/O 10/08/16 10/08/16 10/08/16 10/09/16 10/09/16 10/09/16 07:00 15:00 23:00 07:00 15:00 23:00 Intake Total 550 ml 840 ml 480 ml 480 ml Output Total 475 ml 200 ml 350 ml 450 ml Balance 75 ml 640 ml 130 ml 30 ml Intake Oral 240 ml 840 ml 480 ml 480 ml IV Total 310 ml Output Urine Total 475 ml 200 ml 350 ml 450 ml # Voids 4 # Bowel Movements 0 0 0 Result Diagram: 10/08/16205410/09/16 0609 Imaging Last 24 hours Impressions Chest X-Ray 10/07/16 0000 Signed Impressions: Service Date/Time: October 08:33 - CONCLUSION: No pneumothorax is visualized. Lungs are underinflated with mild atelectasis at the lung bases. Laureano Haynes MD Thoracic Spine CT 10/06/16 165 Signed Impressions: Service Date/Time: Thursday, October 06, 2016 17:14 - CONCLUSION: 1. No fracture or dislocation. 2. 8 mm soft tissue nodule on the left neural foramen at T4. This likely relates to a small schwannoma. An outpatient followup MRI of the thoracic spine with and without gadolinium suggested. Gus Cornelius Jr., MD Maxillofacial CT 10/06/161655 Signed Impressions: Service Date/Time: Thursday, October 06, 2016 17:06 - CONCLUSION: No evidence of fracture. Taz Cárdenas MD Lumbar Spine CT 10/06/161655 Signed Impressions: Service Date/Time: Thursday, October 06, 2016 17:14 - CONCLUSION: 1. Mild multilevel degenerative disc disease with marginal spurring at multiple mid and lower lumbar levels. 2. No acute fracture. Minimal Grade I retrolisthesis of L5 on S1 is probably due to facet degeneration. 3. Mild, diffuse disc bulge at L4-5 with facet hypertrophy minimally encroaches on the spinal canal but the spinal canal and neural foramina appear to be adequate throughout. 4. Not mentioned above, mild ectasia of the distal aorta measuring 2.7 cm in the greatest AP dimension just above the bifurcation. No aneurysmal disease. Darryl Cordero MD Head CT 10/06/161655 Signed Impressions: Service Date/Time: Thursday, October 06, 2016 17:06 - CONCLUSION: No acute intracranial findings. Taz Cárdenas MD Chest CT 10/06/161655 Signed Impressions: Service Date/Time: Thursday, October 06, 2016 17:14 - CONCLUSION: Third and fifth rib fractures on the right. Very small right pneumothorax. Taz Cárdenas MD Cervical Spine CT 10/06/161655 Signed Impressions: Service Date/Time: Thursday, October 06, 2016 17:06 - CONCLUSION: No evidence of fracture. Taz Cárdenas MD Abdomen/Pelvis CT 10/06/161655 Signed Impressions: Service Date/Time: Thursday, October 06, 2016 17:14 - CONCLUSION: 1. Multiple rounded hypodensities in the right lobe of the liver. This finding is nonspecific and may represent multiple cysts, ductal dilatation or other hepatic lesions. Not a typical finding for acute traumatic injury. Recommend routine followup abdominal MRI with and without contrast. 2. No other acute findings in the abdomen and pelvis. Taz Cárdenas MD Objective Remarks seen by Dr. Yo Stanton Left upper extremity: Long arm splint intact. Distally intact sensation over the radial ulnar and median nerve distributions with good capillary refills Left lower extremity: Clean dressings intact with external fixator in place. Swelling +2. Intact sensation distally in all his toes and is able to move all toes appropriately Assessment & Plan Assessment and Plan Left tibial pilon fracture POD #2 external fixation Left elbow dislocation - reduced in the emergency room and splinted Nonweightbearing left lower extremity; left upper extremity Maintain splint left upper extremity Pin care twice a day for left ankle Ice and elevation Lovenox Nothing by mouth after midnight on Tuesday night for possible surgery on Tuesday for left tibial pilon fracture Malou Suazo Oct 09, 2016 07:44
[2016-10-09] MEDS: REMOVE OLD LIDOCAINE PATCH T-DERMAL SCH (08:00)
[2016-10-09] MEDS: LACTULOSE SYRUP 20 GM/30 ML CUP PO SCH (08:51)
[2016-10-09] MEDS: ENOXAPARIN SODIUM 40 MG/0.4 ML SYRINGE SQ SCH (08:52)
[2016-10-09] MEDS: LIDOCAINE HCL 5% PATCH T-DERMAL SCH (08:54)
[2016-10-09] MEDS: LISINOPRIL 20 MG TAB PO SCH (08:55)
[2016-10-09] MEDS: DOCUSATE SODIUM 50 MG/SENNA 8.6 MG TAB PO SCH ×2 (08:55→21:35)
[2016-10-09] MEDS: METOPROLOL TARTRATE 25 MG TAB PO SCH ×2 (08:55→21:35)
[2016-10-09] MEDS: SODIUM CHLORIDE 0.9% FLUSH 5 ML FLUSH IVF SCH ×2 (08:55→21:00)
[2016-10-09] MEDS: SODIUM CHLORIDE 0.9% FLUSH 10 ML FLUSH IV FLUSH PRN (08:55)
[2016-10-09] MEDS: FAMOTIDINE 20 MG TAB PO SCH ×2 (08:55→21:35)
[2016-10-09] MEDS: BACITRACIN TOP OINT 15 GM TUBE TOP SCH ×2 (09:00→21:00)
--- NOTE | 2016-10-09 09:47 | RADRPT ---
EXAM DATE/TIME: 10/09/2016 08:22 [facility] COMPARISON: No previous studies available for comparison. INDICATIONS : Increased lab values. MEDICAL HISTORY : Alcohol use. Tobacco use. Caffeine use. SURGICAL HISTORY : Left knee surgery. ENCOUNTER: Initial ACUITY: 2 days PAIN SCORE: 4/10 LOCATION: Bilateral upper quadrant MEASUREMENTS: LIVER: 17.9 cm length COMMON DUCT: 2 mm RIGHT KIDNEY: 11.0 x 6.3 x 5.7 cm SPLEEN: 10.3 cm length FINDINGS: LIVER: Normal echotexture without focal lesion or ductal dilatation. COMMON DUCT: No intraluminal mass or stone visualized. GALLBLADDER: Wall thickness is borderline measuring 3 mm. No calculi identified. No pericholecystic fluid. PANCREAS: The visualized portions are within normal limits. RIGHT KIDNEY: No hydronephrosis, stone or mass. SPLEEN: No focal lesion. CONCLUSION: Borderline gallbladder wall thickness. Otherwise within normal limits. Taz Cárdenas MD on October 09, 2016 at 9:44 Board Certified Radiologist. This report was verified electronically.
[2016-10-09] MEDS ORDERED: HYDROmorphone HCL 2 MG TAB PO PRN ×2 (12:00)
[2016-10-09] MEDS ORDERED: NALOXONE HCL 0.4 MG/ML AMP IV PRN ×2 (12:00→12:30)
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
[2016-10-09] MEDS ORDERED: HYDROmorphone HCL PF 1 MG/ML VIAL IV PRN ×2 (12:30)
--- NOTE | 2016-10-09 12:40 | HHI.PR ---
Subjective Subjective Notes Pain controlled OOB to wheelchair yesterday Objective Vitals/I&O Vital Signs Date Time Temp Pulse Resp B/P Pulse Ox O2 Delivery O2 Flow Rate FiO2 10/09/16 09:20 92 21 10/09/16 08:00 97.1 71 18 207/93 10/08/16 19:40 Room Air 10/08/16 16:37 3.00 Labs Laboratory Tests Test 10/08/16 10/09/16 20:55 06:09 White Blood Count 12.4 Red Blood Count 3.92 Hemoglobin 12.3 Hematocrit 35.9 Mean Corpuscular Volume 91.6 Mean Corpuscular Hemoglobin 31.2 Mean Corpuscular Hemoglobin 34.1 Concent Red Cell Distribution Width 14.2 Platelet Count 221 Mean Platelet Volume 9.1 Neutrophils (%) (Auto) 76.2 Lymphocytes (%) (Auto) 13.7 Monocytes (%) (Auto) 8.0 Eosinophils (%) (Auto) 1.1 Basophils (%) (Auto) 1.0 Neutrophils # (Auto) 9.4 Lymphocytes # (Auto) 1.7 Monocytes # (Auto) 1.0 Eosinophils # (Auto) 0.1 Basophils # (Auto) 0.1 CBC Comment DIFF FINAL Differential Comment Hemoglobin A1c 5.6 Sodium Level 140 Potassium Level 4.2 Chloride Level 106 Carbon Dioxide Level 28.9 Anion Gap 5 Blood Urea Nitrogen 14 Creatinine 0.88 Estimat Glomerular Filtration 92 Rate Random Glucose 105 Calcium Level 8.1 Total Bilirubin 0.6 Aspartate Amino Transf 69 (AST/SGOT) Alanine Aminotransferase 77 (ALT/SGPT) Alkaline Phosphatase 75 Total Protein 6.3 Albumin 2.3 Triglycerides Level 182 Cholesterol Level 157 LDL Cholesterol 81 HDL Cholesterol 39.5 Cholesterol/HDL Ratio 3.97 Radiology Last Impressions Chest X-Ray 10/07/16 0000 Signed Impressions: Service Date/Time: October 08:33 - CONCLUSION: No pneumothorax is visualized. Lungs are underinflated with mild atelectasis at the lung bases. Laureano Haynes MD Ankle X-Ray 10/07/16 0000 Signed Impressions: Service Date/Time: October 12:08 - CONCLUSION: Distal tibia and fibular fractures again seen. Taz Cárdenas MD Thoracic Spine CT 10/06/16 5356 Signed Impressions: Service Date/Time: Thursday, October 06, 2016 17:14 - CONCLUSION: 1. No fracture or dislocation. 2. 8 mm soft tissue nodule on the left neural foramen at T4. This likely relates to a small schwannoma. An outpatient followup MRI of the thoracic spine with and without gadolinium suggested. Gus Cornelius Jr., MD Maxillofacial CT 10/06/161655 Signed Impressions: Service Date/Time: Thursday, October 06, 2016 17:06 - CONCLUSION: No evidence of fracture. Taz Cárdenas MD Lumbar Spine CT 10/06/161655 Signed Impressions: Service Date/Time: Thursday, October 06, 2016 17:14 - CONCLUSION: 1. Mild multilevel degenerative disc disease with marginal spurring at multiple mid and lower lumbar levels. 2. No acute fracture. Minimal Grade I retrolisthesis of L5 on S1 is probably due to facet degeneration. 3. Mild, diffuse disc bulge at L4-5 with facet hypertrophy minimally encroaches on the spinal canal but the spinal canal and neural foramina appear to be adequate throughout. 4. Not mentioned above, mild ectasia of the distal aorta measuring 2.7 cm in the greatest AP dimension just above the bifurcation. No aneurysmal disease. Darryl Cordero MD Head CT 10/06/161655 Signed Impressions: Service Date/Time: Thursday, October 06, 2016 17:06 - CONCLUSION: No acute intracranial findings. Taz Cárdenas MD Chest CT 10/06/161655 Signed Impressions: Service Date/Time: Thursday, October 06, 2016 17:14 - CONCLUSION: Third and fifth rib fractures on the right. Very small right pneumothorax. Taz Cárdenas MD Cervical Spine CT 10/06/161655 Signed Impressions: Service Date/Time: Thursday, October 06, 2016 17:06 - CONCLUSION: No evidence of fracture. Taz Cárdenas MD Abdomen/Pelvis CT 10/06/161655 Signed Impressions: Service Date/Time: Thursday, October 06, 2016 17:14 - CONCLUSION: 1. Multiple rounded hypodensities in the right lobe of the liver. This finding is nonspecific and may represent multiple cysts, ductal dilatation or other hepatic lesions. Not a typical finding for acute traumatic injury. Recommend routine followup abdominal MRI with and without contrast. 2. No other acute findings in the abdomen and pelvis. Taz Cárdenas MD Radius/Ulna X-Ray 10/06/16 0000 Signed Impressions: Service Date/Time: Thursday, October 06, 2016 16:32 - CONCLUSION: Complete radial dislocation of the elbow joint. Darryl Cordero MD Pelvis X-Ray 10/06/16 0000 Signed Impressions: Service Date/Time: Thursday, October 06, 2016 16:32 - CONCLUSION: No acute osseous injury. Darryl Cordero MD Elbow X-Ray 10/06/16 0000 Signed Impressions: Service Date/Time: Thursday, October 06, 2016 16:32 - CONCLUSION: 1. Successful reduction of the previously dislocated elbow. 2. Radiopaque densities along the anterior aspect of the elbow joint may represent small avulsion fractures or radiopaque foreign bodies in the overlying soft tissues. Additional views would be useful for further evaluation if clinically warranted. Darryl Cordero MD Narrative Exam GENERAL: 50 year old male lying in bed in no acute distress. SKIN: Warm and dry. Scattered abrasions noted to LEFT face. Bulky dry dressing to head. CARDIOVASCULAR: Regular rate and rhythm. RESPIRATORY: No accessory muscle use. Clear and diminished to auscultation. Breath sounds equal bilaterally. GASTROINTESTINAL: Abdomen soft, non-tender, nondistended. MUSCULOSKELETAL: Extremities without cyanosis, or edema. LLE ex-fix in place. MARTINES. LUE soft splint in place. + pulses x4. NEUROLOGICAL: Awake and alert. Normal speech. A/P Assessment and Plan INJURIES: LEFT tib/fib fx RIGHT rib fxs (3,4) Small RIGHT PTX RIGHT forearm avulsion (sutures) LEFT elbow dislocation 10/06: LEFT elbow reduced 10/07: LEFT ankle reduction and placement of external fixator PMHx: Tobacco abuse, HTN Diet: Regular tolerating. Pain controlled Pulm: IS, encouraged use Pain: [place], IV Dilaudid, Robaxin, Lidoderm patch, IV Toradol Activity: OOB. PT and OT evaluating. (NWB LUE, NWB LLE). OOB to wheelchair yesterday. GI: IV Protonix Bowel: Mara-colace 2 tabs BID, MOM. No BM yet. Added lactulose daily DVT: SCDs, Lovenox 40mg daily LEFT tib/fib fx Orthopedics consulted 6/1: LEFT ankle reduction and placement of external fixator Pin care BID Ortho plans ORIF of the ankle in 7-10 days NWB LLE PT- OOB Pain control Lovenox RIGHT rib fxs (3,4) Pain control Supportive care Pulmonary toileting OOB Small RIGHT PTX Resolved without intervention 10/07: CXR shows no PTX, mild atelectasis Pulmonary toileting RIGHT forearm avulsion Cleanse with soap and water daily. May leave open to air, unless draining LEFT elbow dislocation Reduced in ED F/U X-ray shows good alignment NWB LUE- splint Supportive care Pain control OT HTN No home HTN meds Lisinopril 20mg QD Hydralazine to 50mg q8 Hospitalist consult for medical management Lopressor 12.5 BID Pain control Wound care for abrasions: Cleanse daily with soap and water. Leave open to air , May cover with dry dressing if draining. Case management consulted to assist with discharge planning. The exam, history, and the medical decision-making described in the above note were completed with the assistance of the mid-level provider. I reviewed and agree with the findings presented. I attest that I had a [id number] encounter with the patient on the same day, and personally performed and documented my assessment and findings in the medical record. Vinny De Jesus Oct 09, 2016 12:40 Steven Eldridge MD Oct 09, 2016 14:01
[2016-10-09] MEDS ORDERED: HYDROmorphone HCL PF 1 MG/ML VIAL IV PUSH ONE (13:00)
[2016-10-09] MEDS: cloNIDine HCL 0.1 MG TAB PO SCH ×2 (14:48→21:36)
[2016-10-10] VITALS (8 sets, daily range): BP systolic 158–212; BP diastolic 70–94; PULSE 66–88; RESP 18–22; TEMP 96.3–99.1; O2SAT 92–95
[2016-10-10] MEDS: ACETAMINOPHEN/HYDROcodone 325 MG/5 MG TAB PO PRN ×2 (02:51→10:05)
[2016-10-10] MEDS: HYDROmorphone HCL PF 1 MG/ML VIAL IVP PRN ×3 (04:21→15:19)
[2016-10-10] MEDS: hydrALAZINE HCL 50 MG TAB PO SCH ×3 (06:44→22:10)
[2016-10-10] MEDS: cloNIDine HCL 0.1 MG TAB PO SCH ×2 (06:44→17:56)
[2016-10-10 07:47] LABS: ALT (GPT) 69 U/L (12-78); ANION GAP 7 MEQ/L (5-15); AST (GOT) 57 U/L (15-37); BICARBONATE 28.1 MEQ/L (21.0-32.0); BLOOD UREA NITROGEN 18 MG/DL (7-18); CHLORIDE 108 MEQ/L (98-107); GLOMERULAR FILTRATION RATE 89 ML/MIN (>89); SODIUM (NA) 143 MEQ/L (136-145)
[2016-10-10 07:49] LABS: ALKALINE PHOSPHATASE 77 U/L (45-117); TOTAL BILIRUBIN ADULT 0.7 MG/DL (0.2-1.0)
[2016-10-10] MEDS: REMOVE OLD LIDOCAINE PATCH T-DERMAL SCH (08:00)
--- NOTE | 2016-10-10 08:28 | PD.ORT.PN ---
Subjective Subjective Remarks pt complains of post op pain, no other complaints Objective Vitals Vital Signs Date Time Temp Pulse Resp B/P Pulse Ox O2 Delivery O2 Flow Rate FiO2 10/10/16 04:00 98.4 85 20 187/83 95 10/10/16 00:00 98.4 77 20 187/83 95 10/09/16 19:57 97.8 80 22 198/88 93 10/09/16 16:00 96.0 74 18 203/90 95 10/09/16 14:20 72 188/88 10/09/16 12:20 70 228/109 10/09/16 12:00 96.7 75 18 205/88 94 10/09/16 09:20 92 21 I/O 10/09/16 10/09/16 10/09/16 10/10/16 10/10/16 10/10/16 07:00 15:00 23:00 07:00 15:00 23:00 Intake Total 480 ml 600 ml 780 ml 480 ml Output Total 450 ml Balance 30 ml 600 ml 780 ml 480 ml Intake Oral 480 ml 600 ml 780 ml 480 ml Output Urine Total 450 ml # Voids 4 2 2 # Bowel Movements 0 2 1 1 Result Diagram: 10/08/16205410/10/16 0622 Imaging Last 24 hours Impressions Chest X-Ray 10/07/16 0000 Signed Impressions: Service Date/Time: October 08:33 - CONCLUSION: No pneumothorax is visualized. Lungs are underinflated with mild atelectasis at the lung bases. Laureano Haynes MD Thoracic Spine CT 10/06/161655 Signed Impressions: Service Date/Time: Thursday, October 06, 2016 17:14 - CONCLUSION: 1. No fracture or dislocation. 2. 8 mm soft tissue nodule on the left neural foramen at T4. This likely relates to a small schwannoma. An outpatient followup MRI of the thoracic spine with and without gadolinium suggested. Gus Cornelius Jr., MD Maxillofacial CT 10/06/161655 Signed Impressions: Service Date/Time: Thursday, October 06, 2016 17:06 - CONCLUSION: No evidence of fracture. Taz Cárdenas MD Lumbar Spine CT 10/06/161655 Signed Impressions: Service Date/Time: Thursday, October 06, 2016 17:14 - CONCLUSION: 1. Mild multilevel degenerative disc disease with marginal spurring at multiple mid and lower lumbar levels. 2. No acute fracture. Minimal Grade I retrolisthesis of L5 on S1 is probably due to facet degeneration. 3. Mild, diffuse disc bulge at L4-5 with facet hypertrophy minimally encroaches on the spinal canal but the spinal canal and neural foramina appear to be adequate throughout. 4. Not mentioned above, mild ectasia of the distal aorta measuring 2.7 cm in the greatest AP dimension just above the bifurcation. No aneurysmal disease. Darryl Cordero MD Head CT 10/06/161655 Signed Impressions: Service Date/Time: Thursday, October 06, 2016 17:06 - CONCLUSION: No acute intracranial findings. Taz Cárdenas MD Chest CT 10/06/161655 Signed Impressions: Service Date/Time: Thursday, October 06, 2016 17:14 - CONCLUSION: Third and fifth rib fractures on the right. Very small right pneumothorax. Taz Cárdenas MD Cervical Spine CT 10/06/161655 Signed Impressions: Service Date/Time: Thursday, October 06, 2016 17:06 - CONCLUSION: No evidence of fracture. Taz Cárdenas MD Abdomen/Pelvis CT 10/06/161655 Signed Impressions: Service Date/Time: Thursday, October 06, 2016 17:14 - CONCLUSION: 1. Multiple rounded hypodensities in the right lobe of the liver. This finding is nonspecific and may represent multiple cysts, ductal dilatation or other hepatic lesions. Not a typical finding for acute traumatic injury. Recommend routine followup abdominal MRI with and without contrast. 2. No other acute findings in the abdomen and pelvis. Taz Cárdenas MD Objective Remarks seen by Dr. Yo Stanton Left upper extremity: Long arm splint intact. Distally intact sensation over the radial ulnar and median nerve distributions with good capillary refills Left lower extremity: Clean dressings intact with external fixator in place. Swelling +2. Intact sensation distally in all his toes and is able to move all toes appropriately Assessment & Plan Assessment and Plan Left tibial pilon fracture POD #3 external fixation Left elbow dislocation - reduced in the emergency room and splinted Nonweightbearing left lower extremity; left upper extremity Maintain splint left upper extremity Pin care twice a day for left ankle Ice and elevation Lovenox Nothing by mouth after midnight tonight for possible surgery on Tuesday for left tibial pilon fracture Malou Suazo Oct 10, 2016 08:28
[2016-10-10] MEDS: SODIUM CHLORIDE 0.9% FLUSH 5 ML FLUSH IVF SCH ×2 (09:00→21:00)
[2016-10-10] MEDS: DOCUSATE SODIUM 50 MG/SENNA 8.6 MG TAB PO SCH ×2 (09:00→21:00)
[2016-10-10] MEDS: BACITRACIN TOP OINT 15 GM TUBE TOP SCH (09:00)
[2016-10-10] MEDS: LACTULOSE SYRUP 20 GM/30 ML CUP PO SCH (09:00)
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
[2016-10-10] MEDS: LIDOCAINE HCL 5% PATCH T-DERMAL SCH (10:03)
[2016-10-10] MEDS: FAMOTIDINE 20 MG TAB PO SCH ×2 (10:04→22:10)
[2016-10-10] MEDS: ENOXAPARIN SODIUM 40 MG/0.4 ML SYRINGE SQ SCH (10:04)
[2016-10-10] MEDS: METOPROLOL TARTRATE 25 MG TAB PO SCH ×2 (10:04→22:10)
[2016-10-10] MEDS: LISINOPRIL 20 MG TAB PO SCH (10:04)
[2016-10-10] MEDS: METHOCARBAMOL 500 MG TAB PO SCH ×2 (10:05→15:19)
[2016-10-10] MEDS: cloNIDine HCL 0.1 MG TAB PO PRN (11:56)
[2016-10-10] MEDS: ENALAPRILAT 2.5 MG/2 ML VIAL IV PUSH PRN (11:56)
[2016-10-10] MEDS ORDERED: HYDROmorphone HCL PF 2 MG/ML VIAL IV PRN (13:30)
[2016-10-10] MEDS ORDERED: oxyCODONE/ACETAMINOPHEN 5 MG/325 MG TAB PO PRN (13:45)
[2016-10-10] MEDS: oxyCODONE/ACETAMINOPHEN 10 MG/325 MG TAB PO PRN ×3 (13:56→22:14)
--- NOTE | 2016-10-10 16:44 | HHI.PR ---
Subjective Subjective Notes Pain controlled Hoping to have ex-fix removed tomorrow Objective Vitals/I&O Vital Signs Date Time Temp Pulse Resp B/P Pulse Ox O2 Delivery O2 Flow Rate FiO2 10/10/16 16:00 96.3 75 18 158/78 95 10/10/16 09:24 21 10/08/16 19:40 Room Air 10/08/16 16:37 3.00 Labs Laboratory Tests Test 10/10/16 06:22 Sodium Level 143 Potassium Level 4.0 Chloride Level 108 Carbon Dioxide Level 28.1 Anion Gap 7 Blood Urea Nitrogen 18 Creatinine 0.91 Estimat Glomerular Filtration 89 Rate Random Glucose 106 Calcium Level 8.8 Total Bilirubin 0.7 Aspartate Amino Transf 57 (AST/SGOT) Alanine Aminotransferase 69 (ALT/SGPT) Alkaline Phosphatase 77 Total Protein 6.3 Albumin 2.3 Radiology Last Impressions Chest X-Ray 10/07/16 0000 Signed Impressions: Service Date/Time: October 08:33 - CONCLUSION: No pneumothorax is visualized. Lungs are underinflated with mild atelectasis at the lung bases. Laureano Haynes MD Ankle X-Ray 10/07/16 0000 Signed Impressions: Service Date/Time: October 12:08 - CONCLUSION: Distal tibia and fibular fractures again seen. Taz Cárdenas MD Thoracic Spine CT 10/06/161655 Signed Impressions: Service Date/Time: Thursday, October 06, 2016 17:14 - CONCLUSION: 1. No fracture or dislocation. 2. 8 mm soft tissue nodule on the left neural foramen at T4. This likely relates to a small schwannoma. An outpatient followup MRI of the thoracic spine with and without gadolinium suggested. Gus Cornelius Jr., MD Maxillofacial CT 10/06/161655 Signed Impressions: Service Date/Time: Thursday, October 06, 2016 17:06 - CONCLUSION: No evidence of fracture. Taz Cárdenas MD Lumbar Spine CT 10/06/161655 Signed Impressions: Service Date/Time: Thursday, October 06, 2016 17:14 - CONCLUSION: 1. Mild multilevel degenerative disc disease with marginal spurring at multiple mid and lower lumbar levels. 2. No acute fracture. Minimal Grade I retrolisthesis of L5 on S1 is probably due to facet degeneration. 3. Mild, diffuse disc bulge at L4-5 with facet hypertrophy minimally encroaches on the spinal canal but the spinal canal and neural foramina appear to be adequate throughout. 4. Not mentioned above, mild ectasia of the distal aorta measuring 2.7 cm in the greatest AP dimension just above the bifurcation. No aneurysmal disease. Darryl Cordero MD Head CT 10/06/161655 Signed Impressions: Service Date/Time: Thursday, October 06, 2016 17:06 - CONCLUSION: No acute intracranial findings. Taz Cárdenas MD Chest CT 10/06/161655 Signed Impressions: Service Date/Time: Thursday, October 06, 2016 17:14 - CONCLUSION: Third and fifth rib fractures on the right. Very small right pneumothorax. Taz Cárdenas MD Cervical Spine CT 10/06/161655 Signed Impressions: Service Date/Time: Thursday, October 06, 2016 17:06 - CONCLUSION: No evidence of fracture. Taz Cárdenas MD Abdomen/Pelvis CT 10/06/161655 Signed Impressions: Service Date/Time: Thursday, October 06, 2016 17:14 - CONCLUSION: 1. Multiple rounded hypodensities in the right lobe of the liver. This finding is nonspecific and may represent multiple cysts, ductal dilatation or other hepatic lesions. Not a typical finding for acute traumatic injury. Recommend routine followup abdominal MRI with and without contrast. 2. No other acute findings in the abdomen and pelvis. Taz Cárdenas MD Radius/Ulna X-Ray 10/06/16 Signed Impressions: Service Date/Time: Thursday, October 06, 2016 16:32 - CONCLUSION: Complete radial dislocation of the elbow joint. Darryl Cordero MD Pelvis X-Ray 10/06/16 Signed Impressions: Service Date/Time: Thursday, October 06, 2016 16:32 - CONCLUSION: No acute osseous injury. Darryl Cordero MD Elbow X-Ray 10/06/16 Signed Impressions: Service Date/Time: Thursday, October 06, 2016 16:32 - CONCLUSION: 1. Successful reduction of the previously dislocated elbow. 2. Radiopaque densities along the anterior aspect of the elbow joint may represent small avulsion fractures or radiopaque foreign bodies in the overlying soft tissues. Additional views would be useful for further evaluation if clinically warranted. Darryl Cordero MD Narrative Exam GENERAL: 50 year old male lying in bed in no acute distress. SKIN: Warm and dry. Scattered abrasions noted to LEFT face. CARDIOVASCULAR: Regular rate and rhythm. RESPIRATORY: No accessory muscle use. Clear and diminished to auscultation. Breath sounds equal bilaterally. GASTROINTESTINAL: Abdomen soft, non-tender, nondistended. MUSCULOSKELETAL: Extremities without cyanosis, +1 edema LLE. LLE ex-fix in place. MAEW. LUE soft splint in place. + pulses x4. NEUROLOGICAL: Awake and alert. Normal speech. A/P Assessment and Plan INJURIES: LEFT tib/fib fx RIGHT rib fxs (3,4) Small RIGHT PTX RIGHT forearm avulsion (sutures) LEFT elbow dislocation 10/06: LEFT elbow reduced 10/07: LEFT ankle reduction and placement of external fixator PMHx: Tobacco abuse, HTN Diet: Regular tolerating. Pain controlled Pulm: IS, encouraged use Pain: [place], IV Dilaudid, Robaxin, Lidoderm patch, IV Toradol. Pain controlled Activity: OOB. PT and OT evaluating. (NWB LUE, NWB LLE). OOB to wheelchair yesterday. GI: IV Protonix Bowel: Mara-colace 2 tabs BID, MOM. LBM 10/10 DVT: SCDs, Lovenox 40mg daily LEFT tib/fib fx Orthopedics consulted 10/07: LEFT ankle reduction and placement of external fixator Pin care BID Ortho plans ORIF of the ankle in 7-10 days NWB LLE Ice, elevate PT- OOB Pain control Lovenox RIGHT rib fxs (3,4) Pain control Supportive care Pulmonary toileting OOB Small RIGHT PTX Resolved without intervention 10/07: CXR shows no PTX, mild atelectasis Pulmonary toileting RIGHT forearm avulsion Cleanse with soap and water daily. May leave open to air, unless draining LEFT elbow dislocation Reduced in ED F/U X-ray shows good alignment NWB LUE- splint Supportive care Pain control OT HTN No home HTN meds Lisinopril 20mg QD Hydralazine to 50mg q8 Hospitalist consult for medical management Lopressor 12.5 BID Pain control Wound care for abrasions: Cleanse daily with soap and water. Leave open to air , May cover with dry dressing if draining. Case management consulted to assist with discharge planning. Attending Statement The exam, history, and the medical decision-making described in the above note were completed with the assistance of the mid-level provider. I reviewed and agree with the findings presented. I attest that I had a [id number] encounter with the patient on the same day, and personally performed and documented my assessment and findings in the medical record. Vinny De Jesus Oct 10, 2016 16:44 Rigo Torres MD Oct 11, 2016 15:16
[2016-10-10] MEDS ORDERED: LACTULOSE SYRUP 20 GM/30 ML CUP PO PRN (16:45)
[2016-10-10] MEDS: HYDROmorphone HCL PF 1 MG/ML VIAL IV PRN (19:25)
[2016-10-11] VITALS (7 sets, daily range): BP systolic 128–167; BP diastolic 61–77; PULSE 76–110; RESP 16–20; TEMP 96.4–97.9; O2SAT 92–98
[2016-10-11] MEDS: METHOCARBAMOL 500 MG TAB PO SCH ×4 (00:14→23:13)
[2016-10-11] MEDS: cloNIDine HCL 0.1 MG TAB PO SCH ×5 (00:14→23:13)
[2016-10-11] MEDS: HYDROmorphone HCL PF 1 MG/ML VIAL IV PRN ×2 (00:15→04:33)
[2016-10-11] MEDS: BACITRACIN TOP OINT 15 GM TUBE TOP SCH ×4 (00:20→20:06)
[2016-10-11] MEDS ORDERED: SODIUM CHLORID 0.9% 500 ML IV PRN (03:15)
[2016-10-11] MEDS ORDERED: LACTATED RINGER'S 1000 ML IV PRN (03:15)
[2016-10-11] MEDS ORDERED: POVIDONE IODINE 5% (ANTISEPSIS KIT) 4 APPLICATIONS EACH NARE PRN (03:15)
[2016-10-11] MEDS ORDERED: CHLORHEXIDINE GLUCONATE 2 % 1 PACK (2 CLOTHS) TOPICAL PRN (03:15)
[2016-10-11] MEDS ORDERED: INSULIN HUMAN REGULAR 1,000 UNITS/10 ML VIAL SQ PRN (03:15)
[2016-10-11] MEDS: oxyCODONE/ACETAMINOPHEN 10 MG/325 MG TAB PO PRN ×4 (03:18→23:14)
[2016-10-11] MEDS: METOPROLOL TARTRATE 25 MG TAB PO SCH ×2 (06:36→20:04)
--- NOTE | 2016-10-11 06:36 | PD.ORT.PN ---
Subjective Subjective Remarks Pain controlled. No new complaints Objective Vitals Vital Signs Date Time Temp Pulse Resp B/P Pulse Ox O2 Delivery O2 Flow Rate FiO2 10/11/16 04:00 97.1 79 20 161/77 92 10/11/16 00:00 96.4 76 20 150/68 93 10/10/16 20:00 99.1 88 22 160/70 92 10/10/16 16:00 96.3 75 18 158/78 95 10/10/16 12:41 66 165/80 10/10/16 11:48 96.8 75 18 212/94 95 10/10/16 09:24 93 21 10/10/16 08:00 96.7 72 18 179/83 94 I/O 10/10/16 10/10/16 10/10/16 10/11/16 10/11/16 10/11/16 07:00 15:00 23:00 07:00 15:00 23:00 Intake Total 480 ml 960 ml 1100 ml 240 ml Balance 480 ml 960 ml 1100 ml 240 ml Intake Oral 480 ml 960 ml 1100 ml 240 ml # Voids 2 2 2 2 # Bowel Movements 1 2 0 0 Result Diagram: 10/08/16205410/10/16 0622 Imaging Last 24 hours Impressions Chest X-Ray 10/07/16 0000 Signed Impressions: Service Date/Time: October 08:33 - CONCLUSION: No pneumothorax is visualized. Lungs are underinflated with mild atelectasis at the lung bases. Laureano Haynes MD Thoracic Spine CT 10/06/161655 Signed Impressions: Service Date/Time: Thursday, October 06, 2016 17:14 - CONCLUSION: 1. No fracture or dislocation. 2. 8 mm soft tissue nodule on the left neural foramen at T4. This likely relates to a small schwannoma. An outpatient followup MRI of the thoracic spine with and without gadolinium suggested. Gus Cornelius Jr., MD Maxillofacial CT 10/06/161655 Signed Impressions: Service Date/Time: Thursday, October 06, 2016 17:06 - CONCLUSION: No evidence of fracture. Taz Cárdenas MD Lumbar Spine CT 10/06/161655 Signed Impressions: Service Date/Time: Thursday, October 06, 2016 17:14 - CONCLUSION: 1. Mild multilevel degenerative disc disease with marginal spurring at multiple mid and lower lumbar levels. 2. No acute fracture. Minimal Grade I retrolisthesis of L5 on S1 is probably due to facet degeneration. 3. Mild, diffuse disc bulge at L4-5 with facet hypertrophy minimally encroaches on the spinal canal but the spinal canal and neural foramina appear to be adequate throughout. 4. Not mentioned above, mild ectasia of the distal aorta measuring 2.7 cm in the greatest AP dimension just above the bifurcation. No aneurysmal disease. Darryl Cordero MD Head CT 10/06/161655 Signed Impressions: Service Date/Time: Thursday, October 06, 2016 17:06 - CONCLUSION: No acute intracranial findings. Taz Cárdenas MD Chest CT 10/06/161655 Signed Impressions: Service Date/Time: Thursday, October 06, 2016 17:14 - CONCLUSION: Third and fifth rib fractures on the right. Very small right pneumothorax. Taz Cárdenas MD Cervical Spine CT 10/06/161655 Signed Impressions: Service Date/Time: Thursday, October 06, 2016 17:06 - CONCLUSION: No evidence of fracture. Taz Cárdenas MD Abdomen/Pelvis CT 10/06/161655 Signed Impressions: Service Date/Time: Thursday, October 06, 2016 17:14 - CONCLUSION: 1. Multiple rounded hypodensities in the right lobe of the liver. This finding is nonspecific and may represent multiple cysts, ductal dilatation or other hepatic lesions. Not a typical finding for acute traumatic injury. Recommend routine followup abdominal MRI with and without contrast. 2. No other acute findings in the abdomen and pelvis. Taz Cárdenas MD Objective Remarks Left upper extremity: Long arm splint intact. Distally intact sensation over the radial ulnar and median nerve distributions with good capillary refills Left lower extremity: Clean dressings intact with external fixator in place. Swelling +1. Intact sensation distally in all his toes and is able to move all toes appropriately Assessment & Plan Assessment and Plan Left tibial pilon fracture POD #4 external fixation Left elbow dislocation - reduced in the emergency room and splinted Nonweightbearing left lower extremity; left upper extremity Maintain splint left upper extremity Pin care twice a day for left ankle Ice and elevation Hold Lovenox Nothing by mouth sign consents Julio Moses Jr. Oct 11, 2016 06:35
[2016-10-11] MEDS: hydrALAZINE HCL 50 MG TAB PO SCH ×3 (06:37→22:44)
[2016-10-11 06:41] LABS: ALT (GPT) 73 U/L (12-78); ANION GAP 5 MEQ/L (5-15); AST (GOT) 65 U/L (15-37); BICARBONATE 26.6 MEQ/L (21.0-32.0); BLOOD UREA NITROGEN 20 MG/DL (7-18); CHLORIDE 109 MEQ/L (98-107); GLOMERULAR FILTRATION RATE 98 ML/MIN (>89); POTASSIUM 3.9 MEQ/L (3.5-5.1); SODIUM (NA) 141 MEQ/L (136-145)
[2016-10-11 06:43] LABS: ALKALINE PHOSPHATASE 70 U/L (45-117); TOTAL BILIRUBIN ADULT 0.7 MG/DL (0.2-1.0)
[2016-10-11] MEDS ORDERED: ceFAZolin 2 GM PREMIX 50 ML ONE (06:56)
[2016-10-11] MEDS ORDERED: GENTAMICIN SULFATE 80 MG/2 ML VIAL ONE (06:56)
[2016-10-11] MEDS ORDERED: VANCOMYCIN HCL 1000 MG VIAL ONE (06:56)
[2016-10-11] MEDS ORDERED: SODIUM CHLOR 0.9% 250 ML INJ 250 ML ONE (06:56)
[2016-10-11] MEDS ORDERED: ACETAMINOPHEN 1000 MG/100 ML VIAL IV ONE (07:08)
[2016-10-11] MEDS ORDERED: FAMOTIDINE 20 MG/2 ML VIAL ONE (07:08)
[2016-10-11] MEDS: REMOVE OLD LIDOCAINE PATCH T-DERMAL SCH (07:10)
[2016-10-11] MEDS: FAMOTIDINE 20 MG TAB PO SCH ×2 (07:11→20:04)
[2016-10-11] MEDS: LISINOPRIL 20 MG TAB PO SCH (07:11)
[2016-10-11] MEDS: LIDOCAINE HCL 5% PATCH T-DERMAL SCH (07:11)
[2016-10-11] MEDS: SODIUM CHLORIDE 0.9% FLUSH 5 ML FLUSH IVF SCH ×3 (07:11→20:05)
[2016-10-11] MEDS: DOCUSATE SODIUM 50 MG/SENNA 8.6 MG TAB PO SCH ×3 (07:11→20:13)
[2016-10-11] MEDS: ENOXAPARIN SODIUM 40 MG/0.4 ML SYRINGE SQ SCH (07:11)
--- NOTE | 2016-10-11 08:04 | RADRPT ---
EXAM DATE/TIME: 10/11/2016 07:13 [facility] COMPARISON: No previous studies available for comparison. INDICATIONS : Left ankle pain. RADIATION DOSE: 7.29 CTDIvol (mGy) MEDICAL HISTORY : None SURGICAL HISTORY : External fixator left ankle ENCOUNTER: Initial ACUITY: 4 - 6 days PAIN SCALE: 5/10 LOCATION: Left ankle TECHNIQUE: Volumetric scanning of the ankle was performed. Using automated exposure control and adjustment of t he mA and/or kV according to patient size, radiation dose was kept as low as reasonably achievable to obtain optimal diagnostic quality images. FINDINGS: There is a comminuted intra-articular fracture of the tibial plafond. The central portion of the debbi cular surface of the distal tibia has depressed fracture fragments displaced proximally by just over 1 cm. The lateral aspect of the articular surface is subluxed laterally about 6 mm. Some of the fract ure fragments displaced cephalad are abnormally rotated, mostly anteriorly. Small avulsion fracture f ragments present at the medial malleolus. There is a mildly displaced oblique fracture through the la teral malleolus just above the level of the joint. The talus and calcaneus and midfoot appear intact. External fixation screw present through the calcan eus and first metatarsal. CONCLUSION: 1. Comminuted displaced fracture of the tibial plafond as above. Mildly displaced distal fibular frac ture. Overlying soft tissue swelling and small joint effusion. External fixation. Prateek Knight MD on October 11, 2016 at 7:57 Board Certified Radiologist. This report was verified electronically.
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
[2016-10-11] MEDS ORDERED: ENDO10TA8 PO (10:03)
[2016-10-11] MEDS ORDERED: VITA2000 PO (10:03)
[2016-10-11] MEDS ORDERED: CALCTAB19 PO (10:03)
[2016-10-11] MEDS ORDERED: WHEEMIS3 (10:03)
[2016-10-11] MEDS ORDERED: XARE10TA PO (10:03)
[2016-10-11] MEDS ORDERED: ERGO1CAP30 PO (10:03)
[2016-10-11] MEDS ORDERED: LACTATED RINGER'S 1000 ML INJ 1,000 ML IV SCH (10:52)
[2016-10-11] MEDS ORDERED: MISCELLANEOUS PHARMACY INFORMATION XX ONE (11:00)
[2016-10-11] MEDS ORDERED: MISCELLANEOUS NURSING INFORMATION XX PRN (11:00)
[2016-10-11] MEDS ORDERED: SODIUM CHLORIDE 0.9% FLUSH 5 ML FLUSH IVF PRN (11:00)
[2016-10-11] MEDS ORDERED: Post-op Orders (for Pharmacy) MISC XX ONE (11:00)
[2016-10-11] MEDS ORDERED: NALOXONE HCL 0.4 MG/ML AMP IV PRN (11:00)
[2016-10-11] MEDS ORDERED: MORPHINE SULFATE 4 MG/ML INJ IV PUSH PRN (11:00)
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
[2016-10-11] MEDS ORDERED: *morphine SULFATE 8 MG/ML PERIprocedure ONLY ONE (11:57)
[2016-10-11] MEDS ORDERED: BACITRACIN TOP OINT 15 GM TUBE TOPICAL ONE (12:00)
[2016-10-11] MEDS ORDERED: PROPOFOL 200 MG/20 ML AMP IV ONE (12:00)
[2016-10-11] MEDS ORDERED: NEOSTIGMINE 3 MG/3 ML SYR IV ONE (12:00)
[2016-10-11] MEDS ORDERED: ONDANSETRON HCL 4 MG/2 ML VIAL IV PUSH ONE (12:00)
[2016-10-11] MEDS ORDERED: MIDAZOLAM HCL 2 MG/2 ML VIAL ONE (12:02)
[2016-10-11] MEDS ORDERED: fentaNYL CITRATE 250 MCG/5 ML AMP ONE (12:03)
[2016-10-11] MEDS ORDERED: *RESP: ALBUTEROL 2.5 MG/3 ML NEB (PRN) PERIprocedural Use ONLY NEB ONE (12:10)
[2016-10-11] MEDS ORDERED: *HYDROmorphone PF 1 MG VIAL PERIprocedural Use ONLY ONE ×2 (12:15→12:31)
[2016-10-11] MEDS: PCA - TOTAL MG MORPHINE DELIVERED PER SHIFT SCH ×2 (12:25→22:00)
[2016-10-11] MEDS ORDERED: *LABETALOL HCL 100 MG/20 ML VIAL PERIprocedural Use ONLY ONE ×2 (12:28→12:47)
[2016-10-11] MEDS ORDERED: DO NOT ADM ANY ANTICOAGULANT DRUGS PRN (12:30)
[2016-10-11] MEDS ORDERED: *ENALAPRILAT 1.25 MG/ML VIAL PERIprocedural Use ONLY ONE (12:36)
--- NOTE | 2016-10-11 12:37 | RADRPT ---
EXAM DATE/TIME: 10/11/2016 10:07 [facility] COMPARISON: No previous studies available for comparison. INDICATIONS : ORIF left distal tibia. MEDICAL HISTORY : None. SURGICAL HISTORY : External fixator. ENCOUNTER: Subsequent ACUITY: 1 week PAIN SCORE: Non-responsive. LOCATION: Left tibia. FINDINGS: 7 intraoperative spot images of the left tibia and fibula. Internal fixation plate and multiple trans fixing screws are seen in the distal tibia. Longitudinal screw is seen in the distal fibula. CONCLUSION: Intraoperative images showing surgical hardware in the distal tibia and fibula. Taz Cárdenas MD on October 11, 2016 at 12:33 Board Certified Radiologist. This report was verified electronically.
[2016-10-11] MEDS: KETOROLAC TROMETHAMINE 30 MG/ML (IVP) VIAL IVP SCH ×2 (12:46→22:44)
[2016-10-11] MEDS: MORPHINE SULFATE 30 MG/30 ML PCA IV SCH ×3 (12:55→20:08)
[2016-10-11] MEDS ORDERED: hydrALAZINE HCL 20 MG/ML VIAL ONE (12:59)
[2016-10-11] MEDS ORDERED: hydrALAZINE HCL 20 MG/ML VIAL IV PUSH ONE (13:00)
[2016-10-11] MEDS: ceFAZolin 2 GM PREMIX 50 ML IV SCH ×2 (15:48→23:13)
--- NOTE | 2016-10-11 15:48 | HHI.PR ---
Subjective Subjective Notes S/P ORIF LEFT tibia, revision of ex-fix Objective Vitals/I&O Vital Signs Date Time Temp Pulse Resp B/P Pulse Ox O2 Delivery O2 Flow Rate FiO2 10/11/16 15:43 98 Nasal Cannula 2.00 10/11/16 14:33 97.9 103 18 167/73 10/10/16 09:24 21 Labs Laboratory Tests Test 10/11/16 05:36 Sodium Level 141 Potassium Level 3.9 Chloride Level 109 Carbon Dioxide Level 26.6 Anion Gap 5 Blood Urea Nitrogen 20 Creatinine 0.84 Estimat Glomerular Filtration 98 Rate Random Glucose 106 Calcium Level 8.4 Total Bilirubin 0.7 Aspartate Amino Transf 65 (AST/SGOT) Alanine Aminotransferase 73 (ALT/SGPT) Alkaline Phosphatase 70 Total Protein 5.9 Albumin 2.2 Radiology Last Impressions Chest X-Ray 10/07/16 0000 Signed Impressions: Service Date/Time: October 08:33 - CONCLUSION: No pneumothorax is visualized. Lungs are underinflated with mild atelectasis at the lung bases. Laureano Haynes MD Ankle X-Ray 10/07/16 0000 Signed Impressions: Service Date/Time: October 12:08 - CONCLUSION: Distal tibia and fibular fractures again seen. Taz Cárdenas MD Thoracic Spine CT 10/06/161655 Signed Impressions: Service Date/Time: Thursday, October 06, 2016 17:14 - CONCLUSION: 1. No fracture or dislocation. 2. 8 mm soft tissue nodule on the left neural foramen at T4. This likely relates to a small schwannoma. An outpatient followup MRI of the thoracic spine with and without gadolinium suggested. Gus Cornelius Jr., MD Maxillofacial CT 10/06/161655 Signed Impressions: Service Date/Time: Thursday, October 06, 2016 17:06 - CONCLUSION: No evidence of fracture. Taz Cárdenas MD Lumbar Spine CT 10/06/161655 Signed Impressions: Service Date/Time: Thursday, October 06, 2016 17:14 - CONCLUSION: 1. Mild multilevel degenerative disc disease with marginal spurring at multiple mid and lower lumbar levels. 2. No acute fracture. Minimal Grade I retrolisthesis of L5 on S1 is probably due to facet degeneration. 3. Mild, diffuse disc bulge at L4-5 with facet hypertrophy minimally encroaches on the spinal canal but the spinal canal and neural foramina appear to be adequate throughout. 4. Not mentioned above, mild ectasia of the distal aorta measuring 2.7 cm in the greatest AP dimension just above the bifurcation. No aneurysmal disease. Darryl Cordero MD Head CT 10/06/161655 Signed Impressions: Service Date/Time: Thursday, October 06, 2016 17:06 - CONCLUSION: No acute intracranial findings. Taz Cárdenas MD Chest CT 10/06/161655 Signed Impressions: Service Date/Time: Thursday, October 06, 2016 17:14 - CONCLUSION: Third and fifth rib fractures on the right. Very small right pneumothorax. Taz Cárdenas MD Cervical Spine CT 10/06/161655 Signed Impressions: Service Date/Time: Thursday, October 06, 2016 17:06 - CONCLUSION: No evidence of fracture. Taz Cárdenas MD Abdomen/Pelvis CT 10/06/161655 Signed Impressions: Service Date/Time: Thursday, October 06, 2016 17:14 - CONCLUSION: 1. Multiple rounded hypodensities in the right lobe of the liver. This finding is nonspecific and may represent multiple cysts, ductal dilatation or other hepatic lesions. Not a typical finding for acute traumatic injury. Recommend routine followup abdominal MRI with and without contrast. 2. No other acute findings in the abdomen and pelvis. Taz Cárdenas MD Radius/Ulna X-Ray 10/06/16 Signed Impressions: Service Date/Time: Thursday, October 06, 2016 16:32 - CONCLUSION: Complete radial dislocation of the elbow joint. Darryl Cordero MD Pelvis X-Ray 10/06/16 0000 Signed Impressions: Service Date/Time: Thursday, October 06, 2016 16:32 - CONCLUSION: No acute osseous injury. Darryl Cordero MD Elbow X-Ray 10/06/16 0000 Signed Impressions: Service Date/Time: Thursday, October 06, 2016 16:32 - CONCLUSION: 1. Successful reduction of the previously dislocated elbow. 2. Radiopaque densities along the anterior aspect of the elbow joint may represent small avulsion fractures or radiopaque foreign bodies in the overlying soft tissues. Additional views would be useful for further evaluation if clinically warranted. Darryl Cordero MD Narrative Exam GENERAL: 50 year old male lying in bed in no acute distress. SKIN: Warm and dry. Scattered abrasions noted to LEFT face. CARDIOVASCULAR: Regular rate and rhythm. RESPIRATORY: No accessory muscle use. Clear and diminished to auscultation. Breath sounds equal bilaterally. GASTROINTESTINAL: Abdomen soft, non-tender, nondistended. MUSCULOSKELETAL: Extremities without cyanosis, +1 edema LLE. LLE ex-fix in place. MAEW. LUE soft splint in place. + pulses x4. NEUROLOGICAL: Awake and alert. Normal speech. A/P Assessment and Plan INJURIES: LEFT tib/fib fx RIGHT rib fxs (3,4) Small RIGHT PTX RIGHT forearm avulsion (sutures) LEFT elbow dislocation 10/06: LEFT elbow reduced 10/07: LEFT ankle reduction and placement of external fixator 10/11: Left tibia ORIF with revision of ex-fix PMHx: Tobacco abuse, HTN Diet: Regular tolerating. Pain controlled Pulm: IS, encouraged use Pain: [place], IV Dilaudid, Robaxin, Lidoderm patch, IV Toradol. Morphine [employer]. Activity: OOB. PT and OT evaluating. (NWB LUE, NWB LLE). GI: IV Protonix Bowel: Mara-colace 2 tabs BID, MOM. LBM 10/10 DVT: SCDs, Lovenox 40mg daily LEFT tib/fib fx Orthopedics consulted 10/07: LEFT ankle reduction and placement of external fixator 10/11: Left tibia ORIF with revision of ex-fix Pin care BID NWB LLE Ice, elevate PT- OOB Pain control Lovenox RIGHT rib fxs (3,4) Pain control Supportive care Pulmonary toileting OOB Small RIGHT PTX Resolved without intervention 10/07: CXR shows no PTX, mild atelectasis Pulmonary toileting RIGHT forearm avulsion Cleanse with soap and water daily. May leave open to air, unless draining LEFT elbow dislocation Reduced in ED F/U X-ray shows good alignment NWB LUE- splint Supportive care Pain control OT HTN No home HTN meds Lisinopril 20mg QD Hydralazine to 50mg q8 Hospitalist consult for medical management Lopressor 12.5 BID Pain control Wound care for abrasions: Cleanse daily with soap and water. Leave open to air , May cover with dry dressing if draining. Case management consulted to assist with discharge planning. Attending Statement The exam, history, and the medical decision-making described in the above note were completed with the assistance of the mid-level provider. I reviewed and agree with the findings presented. I attest that I had a [id number] encounter with the patient on the same day, and personally performed and documented my assessment and findings in the medical record. Vinny De Jesus Oct 11, 2016 15:48 Rigo Torres MD Oct 13, 2016 16:10
[2016-10-11] MEDS ORDERED: hydrALAZINE HCL 20 MG/ML VIAL IV PUSH PRN (17:00)
[2016-10-11] MEDS: VANCOMYCIN INJ 1,000 MG in SODIUM CHLOR 0.9% 250 ML INJ 250 ML IV SCH (20:04)
[2016-10-12] MEDS: MORPHINE SULFATE 30 MG/30 ML PCA IV SCH ×6 (00:31→22:01)
[2016-10-12 00:38] VITALS: BP 127/63; PULSE 100; RESP 19; TEMP 96.7; O2SAT 92
[2016-10-12 03:34] VITALS: BP 147/68; PULSE 81; RESP 18; TEMP 97.9; O2SAT 93
[2016-10-12] MEDS: hydrALAZINE HCL 50 MG TAB PO SCH ×3 (05:06→21:57)
[2016-10-12] MEDS: KETOROLAC TROMETHAMINE 30 MG/ML (IVP) VIAL IVP SCH ×3 (05:07→21:57)
[2016-10-12] MEDS: oxyCODONE/ACETAMINOPHEN 10 MG/325 MG TAB PO PRN ×5 (05:07→21:57)
[2016-10-12] MEDS: PCA - TOTAL MG MORPHINE DELIVERED PER SHIFT SCH ×3 (05:07→22:00)
[2016-10-12] MEDS: cloNIDine HCL 0.1 MG TAB PO SCH ×4 (05:07→23:53)
--- NOTE | 2016-10-12 06:50 | PD.ORT.PN ---
Subjective Subjective Remarks Pain controlled. No new complaints Objective Vitals Vital Signs Date Time Temp Pulse Resp B/P Pulse Ox O2 Delivery O2 Flow Rate FiO2 10/12/16 05:11 18 10/12/16 05:07 18 10/12/16 03:34 97.9 81 18 147/68 93 10/12/16 00:38 96.7 100 19 127/63 92 10/12/16 00:31 18 10/11/16 22:00 18 10/11/16 20:45 97.6 104 18 128/61 93 10/11/16 20:08 18 10/11/16 15:55 18 10/11/16 15:53 97.4 110 16 135/69 95 10/11/16 15:43 98 Nasal Cannula 2.00 10/11/16 14:33 97.9 103 18 167/73 98 10/11/16 14:00 92 Nasal Cannula 2.00 10/11/16 13:45 98.8 104 16 158/76 95 Nasal Cannula 3 10/11/16 13:30 104 20 158/76 93 10/11/16 13:15 93 20 185/77 93 10/11/16 13:00 92 20 207/86 93 10/11/16 12:55 16 10/11/16 12:45 93 16 220/90 94 10/11/16 12:30 106 16 217/88 93 10/11/16 12:15 97 16 183/84 94 10/11/16 12:00 103 16 170/78 94 10/11/16 11:54 98.8 112 12 131/87 91 Nasal Cannula 3 10/11/16 07:00 Room Air I/O 10/11/16 10/11/16 10/11/16 10/12/16 10/12/16 10/12/16 07:00 15:00 23:00 07:00 15:00 23:00 Intake Total 240 ml 1720 ml 360 ml Output Total 550 ml 500 ml Balance 240 ml 1170 ml -140 ml Intake Oral 240 ml 120 ml 360 ml Other 1600 ml Output Urine Total 400 ml 500 ml Estimated Blood Loss 150 ml # Voids 2 2 3 # Bowel Movements 0 0 Result Diagram: 10/08/16205410/11/16 0536 Imaging Last 24 hours Impressions Chest X-Ray 10/07/16 0000 Signed Impressions: Service Date/Time: October 08:33 - CONCLUSION: No pneumothorax is visualized. Lungs are underinflated with mild atelectasis at the lung bases. Laureano Haynes MD Thoracic Spine CT 10/06/161655 Signed Impressions: Service Date/Time: Thursday, October 06, 2016 17:14 - CONCLUSION: 1. No fracture or dislocation. 2. 8 mm soft tissue nodule on the left neural foramen at T4. This likely relates to a small schwannoma. An outpatient followup MRI of the thoracic spine with and without gadolinium suggested. Gus Cornelius Jr., MD Maxillofacial CT 10/06/161655 Signed Impressions: Service Date/Time: Thursday, October 06, 2016 17:06 - CONCLUSION: No evidence of fracture. Taz Cárdenas MD Lumbar Spine CT 10/06/161655 Signed Impressions: Service Date/Time: Thursday, October 06, 2016 17:14 - CONCLUSION: 1. Mild multilevel degenerative disc disease with marginal spurring at multiple mid and lower lumbar levels. 2. No acute fracture. Minimal Grade I retrolisthesis of L5 on S1 is probably due to facet degeneration. 3. Mild, diffuse disc bulge at L4-5 with facet hypertrophy minimally encroaches on the spinal canal but the spinal canal and neural foramina appear to be adequate throughout. 4. Not mentioned above, mild ectasia of the distal aorta measuring 2.7 cm in the greatest AP dimension just above the bifurcation. No aneurysmal disease. Darryl Cordero MD Head CT 10/06/161655 Signed Impressions: Service Date/Time: Thursday, October 06, 2016 17:06 - CONCLUSION: No acute intracranial findings. Taz Cárdenas MD Chest CT 10/06/161655 Signed Impressions: Service Date/Time: Thursday, October 06, 2016 17:14 - CONCLUSION: Third and fifth rib fractures on the right. Very small right pneumothorax. Taz Cárdenas MD Cervical Spine CT 10/06/161655 Signed Impressions: Service Date/Time: Thursday, October 06, 2016 17:06 - CONCLUSION: No evidence of fracture. Taz Cárdenas MD Abdomen/Pelvis CT 10/06/161655 Signed Impressions: Service Date/Time: Thursday, October 06, 2016 17:14 - CONCLUSION: 1. Multiple rounded hypodensities in the right lobe of the liver. This finding is nonspecific and may represent multiple cysts, ductal dilatation or other hepatic lesions. Not a typical finding for acute traumatic injury. Recommend routine followup abdominal MRI with and without contrast. 2. No other acute findings in the abdomen and pelvis. Taz Cárdenas MD Objective Remarks Left upper extremity: Long arm splint intact. Distally intact sensation over the radial ulnar and median nerve distributions with good capillary refills Left lower extremity: Clean dressings intact with external fixator in place. Swelling +1. Intact sensation distally in all his toes and is able to move all toes appropriately Assessment & Plan Assessment and Plan Left tibial pilon fracture POD #1 ORIF with revision of external fixation Left elbow dislocation -resplinted on 10/11/2016 Nonweightbearing left lower extremity; left upper extremity Maintain splint left upper extremity Pin care twice a day for left ankle and daily dressing changes beginning POD 2 Ice and elevation Lovenox Discharge planning Follow-up appointment with Dr. Gonsalez or [place] in 2 weeks Julio Moses Jr. Oct 12, 2016 06:50
[2016-10-12] MEDS: ceFAZolin 2 GM PREMIX 50 ML IV SCH ×3 (07:52→23:53)
[2016-10-12] MEDS: LISINOPRIL 20 MG TAB PO SCH (07:53)
[2016-10-12] MEDS: METHOCARBAMOL 500 MG TAB PO SCH ×3 (07:53→23:53)
[2016-10-12] MEDS: DOCUSATE SODIUM 50 MG/SENNA 8.6 MG TAB PO SCH ×2 (07:53→20:21)
[2016-10-12] MEDS: ENOXAPARIN SODIUM 40 MG/0.4 ML SYRINGE SQ SCH (07:53)
[2016-10-12] MEDS: METOPROLOL TARTRATE 25 MG TAB PO SCH ×2 (07:53→20:21)
[2016-10-12] MEDS: FAMOTIDINE 20 MG TAB PO SCH ×2 (07:53→20:21)
[2016-10-12] MEDS: REMOVE OLD LIDOCAINE PATCH T-DERMAL SCH (07:54)
[2016-10-12] MEDS: LIDOCAINE HCL 5% PATCH T-DERMAL SCH (07:54)
[2016-10-12 07:55] VITALS: BP 174/81; PULSE 82; RESP 19; TEMP 95.7; O2SAT 92
[2016-10-12] MEDS: BACITRACIN TOP OINT 15 GM TUBE TOP SCH ×2 (09:00→21:00)
[2016-10-12] MEDS: SODIUM CHLORIDE 0.9% FLUSH 5 ML FLUSH IVF SCH ×4 (09:00→20:21)
[2016-10-12] MEDS: VANCOMYCIN INJ 1,000 MG in SODIUM CHLOR 0.9% 250 ML INJ 250 ML IV SCH ×2 (09:03→20:20)
[2016-10-12 11:08] VITALS: BP 153/73; PULSE 82; RESP 18; TEMP 96.7; O2SAT 93
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
--- NOTE | 2016-10-12 13:27 | HHI.PR ---
Subjective Subjective Notes Still reports increased pain despite Morphine SLEEVE SETTER SAFETY STITCH Eating well Objective Vitals/I&O Vital Signs Date Time Temp Pulse Resp B/P Pulse Ox O2 Delivery O2 Flow Rate FiO2 10/12/16 11:08 96.7 82 18 153/73 93 10/12/16 09:11 21 10/12/16 07:58 Room Air 10/11/16 15:43 2.00 Labs Laboratory Tests Test 10/08/16 10/09/16 10/11/16 20:55 06:09 05:36 White Blood Count 12.4 TH/MM3 Red Blood Count 3.92 MIL/MM3 Hemoglobin 12.3 GM/DL Hematocrit 35.9 % Mean Corpuscular Volume 91.6 FL Mean Corpuscular Hemoglobin 31.2 PG Mean Corpuscular Hemoglobin 34.1 % Concent Red Cell Distribution Width 14.2 % Platelet Count 221 TH/MM3 Mean Platelet Volume 9.1 FL Neutrophils (%) (Auto) 76.2 % Lymphocytes (%) (Auto) 13.7 % Monocytes (%) (Auto) 8.0 % Eosinophils (%) (Auto) 1.1 % Basophils (%) (Auto) 1.0 % Neutrophils # (Auto) 9.4 TH/MM3 Lymphocytes # (Auto) 1.7 TH/MM3 Monocytes # (Auto) 1.0 TH/MM3 Eosinophils # (Auto) 0.1 TH/MM3 Basophils # (Auto) 0.1 TH/MM3 CBC Comment DIFF FINAL Differential Comment Hemoglobin A1c 5.6 % Hepatitis A IgM Antibody NEGATIVE Hepatitis B Surface Antigen NEGATIVE Hepatitis B Core IgM Antibody NEGATIVE Hepatitis C Antibody REACTIVE Triglycerides Level 182 MG/DL Cholesterol Level 157 MG/DL LDL Cholesterol 81 MG/DL HDL Cholesterol 39.5 MG/DL Cholesterol/HDL Ratio 3.97 RATIO Sodium Level 141 MEQ/L Potassium Level 3.9 MEQ/L Chloride Level 109 MEQ/L Carbon Dioxide Level 26.6 MEQ/L Anion Gap 5 MEQ/L Blood Urea Nitrogen 20 MG/DL Creatinine 0.84 MG/DL Estimat Glomerular Filtration 98 ML/MIN Rate Random Glucose 106 MG/DL Calcium Level 8.4 MG/DL Total Bilirubin 0.7 MG/DL Aspartate Amino Transf 65 U/L (AST/SGOT) Alanine Aminotransferase 73 U/L (ALT/SGPT) Alkaline Phosphatase 70 U/L Total Protein 5.9 GM/DL Albumin 2.2 GM/DL Radiology Last Impressions Chest X-Ray 10/07/16 0000 Signed Impressions: Service Date/Time: October 08:33 - CONCLUSION: No pneumothorax is visualized. Lungs are underinflated with mild atelectasis at the lung bases. Laureano Haynes MD Ankle X-Ray 10/07/16 0000 Signed Impressions: Service Date/Time: October 12:08 - CONCLUSION: Distal tibia and fibular fractures again seen. Taz Cárdenas MD Thoracic Spine CT 10/06/161655 Signed Impressions: Service Date/Time: Thursday, October 06, 2016 17:14 - CONCLUSION: 1. No fracture or dislocation. 2. 8 mm soft tissue nodule on the left neural foramen at T4. This likely relates to a small schwannoma. An outpatient followup MRI of the thoracic spine with and without gadolinium suggested. Gus Cornelius Jr., MD Maxillofacial CT 10/06/161655 Signed Impressions: Service Date/Time: Thursday, October 06, 2016 17:06 - CONCLUSION: No evidence of fracture. Taz Cárdenas MD Lumbar Spine CT 10/06/161655 Signed Impressions: Service Date/Time: Thursday, October 06, 2016 17:14 - CONCLUSION: 1. Mild multilevel degenerative disc disease with marginal spurring at multiple mid and lower lumbar levels. 2. No acute fracture. Minimal Grade I retrolisthesis of L5 on S1 is probably due to facet degeneration. 3. Mild, diffuse disc bulge at L4-5 with facet hypertrophy minimally encroaches on the spinal canal but the spinal canal and neural foramina appear to be adequate throughout. 4. Not mentioned above, mild ectasia of the distal aorta measuring 2.7 cm in the greatest AP dimension just above the bifurcation. No aneurysmal disease. Darryl Cordero MD Head CT 10/06/161655 Signed Impressions: Service Date/Time: Thursday, October 06, 2016 17:06 - CONCLUSION: No acute intracranial findings. Taz Cárdenas MD Chest CT 10/06/161655 Signed Impressions: Service Date/Time: Thursday, October 06, 2016 17:14 - CONCLUSION: Third and fifth rib fractures on the right. Very small right pneumothorax. Taz Cárdenas MD Cervical Spine CT 10/06/161655 Signed Impressions: Service Date/Time: Thursday, October 06, 2016 17:06 - CONCLUSION: No evidence of fracture. Taz Cárdenas MD Abdomen/Pelvis CT 10/06/16 1656 Signed Impressions: Service Date/Time: Thursday, October 06, 2016 17:14 - CONCLUSION: 1. Multiple rounded hypodensities in the right lobe of the liver. This finding is nonspecific and may represent multiple cysts, ductal dilatation or other hepatic lesions. Not a typical finding for acute traumatic injury. Recommend routine followup abdominal MRI with and without contrast. 2. No other acute findings in the abdomen and pelvis. Taz Cárdenas MD Radius/Ulna X-Ray 10/06/16 0000 Signed Impressions: Service Date/Time: Thursday, October 06, 2016 16:32 - CONCLUSION: Complete radial dislocation of the elbow joint. Darryl Cordero MD Pelvis X-Ray 10/06/16 0000 Signed Impressions: Service Date/Time: Thursday, October 06, 2016 16:32 - CONCLUSION: No acute osseous injury. Darryl Cordero MD Elbow X-Ray 10/06/16 0000 Signed Impressions: Service Date/Time: Thursday, October 06, 2016 16:32 - CONCLUSION: 1. Successful reduction of the previously dislocated elbow. 2. Radiopaque densities along the anterior aspect of the elbow joint may represent small avulsion fractures or radiopaque foreign bodies in the overlying soft tissues. Additional views would be useful for further evaluation if clinically warranted. Darryl Cordero MD Narrative Exam GENERAL: 50 year old well-nourished male lying in bed. SKIN: Warm and dry. Scattered abrasions noted to LEFT face. CARDIOVASCULAR: Regular rate and rhythm. RESPIRATORY: No accessory muscle use. Clear and diminished to auscultation. Breath sounds equal bilaterally. GASTROINTESTINAL: Abdomen soft, non-tender, nondistended. MUSCULOSKELETAL: Extremities without cyanosis, +1 edema LLE. LLE ex-fix in place. MAEW. LUE soft splint in place. + pulses x4. NEUROLOGICAL: Awake and alert. Normal speech. A/P Assessment and Plan INJURIES: LEFT tib/fib fx RIGHT rib fxs (3,4) Small RIGHT PTX RIGHT forearm avulsion (sutures) LEFT elbow dislocation 10/06: LEFT elbow reduced 10/07: LEFT ankle reduction and placement of external fixator 10/11: Left tibia ORIF with revision of ex-fix PMHx: Tobacco abuse, HTN Diet: Regular tolerating. Pain controlled Pulm: IS, encouraged use Pain: [place], IV Dilaudid, Robaxin, Lidoderm patch, IV Toradol. Morphine SLEEVE SETTER SAFETY STITCH. Activity: OOB. PT and OT evaluating. (NWB LUE, NWB LLE). GI: IV Protonix Bowel: Mara-colace 2 tabs BID, MOM. LBM 10/10 DVT: SCDs, Lovenox 40mg daily LEFT tib/fib fx Orthopedics consulted 10/07: LEFT ankle reduction and placement of external fixator 10/11: Left tibia ORIF with revision of ex-fix Pin care BID NWB LLE Ice, elevate PT- OOB- rehabilitation placement Pain control Lovenox RIGHT rib fxs Pain control Supportive care Pulmonary toileting OOB Small RIGHT PTX Resolved without intervention 10/07: CXR shows no PTX, mild atelectasis Pulmonary toileting RIGHT forearm avulsion Cleanse with soap and water daily. May leave open to air, unless draining LEFT elbow dislocation Reduced in ED F/U X-ray shows good alignment NWB LUE- splint Supportive care Pain control OT HTN No home HTN meds Hospitalist consult for medical management Pain control Wound care for abrasions: Cleanse daily with soap and water. Leave open to air , May cover with dry dressing if draining. Case management consulted to assist with discharge planning. [place] following for placement. Attending Statement The exam, history, and the medical decision-making described in the above note were completed with the assistance of the mid-level provider. I reviewed and agree with the findings presented. I attest that I had a [id number] encounter with the patient on the same day, and personally performed and documented my assessment and findings in the medical record. Vinny De Jesus Oct 12, 2016 13:27 Rigo Torres MD Oct 13, 2016 16:10
[2016-10-12 15:48] VITALS: BP 184/100; PULSE 86; RESP 18; TEMP 95.6; O2SAT 91
[2016-10-12 20:38] VITALS: BP 163/74; PULSE 86; RESP 18; TEMP 98; O2SAT 95
[2016-10-13] VITALS (8 sets, daily range): BP systolic 163–195; BP diastolic 72–86; PULSE 77–85; RESP 18; TEMP 96.2–98.5; O2SAT 92–97
[2016-10-13] MEDS: MORPHINE SULFATE 30 MG/30 ML PCA IV SCH (01:36)
[2016-10-13] MEDS: hydrALAZINE HCL 50 MG TAB PO SCH ×3 (05:48→22:15)
[2016-10-13] MEDS: oxyCODONE/ACETAMINOPHEN 10 MG/325 MG TAB PO PRN ×2 (05:48→09:18)
[2016-10-13] MEDS: cloNIDine HCL 0.1 MG TAB PO SCH ×4 (05:48→23:55)
[2016-10-13] MEDS: KETOROLAC TROMETHAMINE 30 MG/ML (IVP) VIAL IVP SCH (05:48)
[2016-10-13] MEDS: PCA - TOTAL MG MORPHINE DELIVERED PER SHIFT SCH ×2 (05:49→11:30)
--- NOTE | 2016-10-13 06:34 | PD.ORT.PN ---
Subjective Subjective Remarks s/p left elbow dislocation POD 2 s/p ORIF left tibial pilon with exfix revision doing well. pain controlled. progressing. Objective Vitals Vital Signs Date Time Temp Pulse Resp B/P Pulse Ox O2 Delivery O2 Flow Rate FiO2 10/13/16 05:49 18 10/13/16 04:13 98.4 80 18 175/79 95 10/13/16 01:36 18 10/13/16 00:09 98.5 85 18 163/72 97 10/12/16 22:01 18 10/12/16 22:00 18 10/12/16 20:38 98.0 86 18 163/74 95 10/12/16 18:37 18 10/12/16 15:48 95.6 86 18 184/100 91 10/12/16 14:08 16 10/12/16 11:08 96.7 82 18 153/73 93 10/12/16 09:56 16 10/12/16 09:56 18 10/12/16 09:11 21 10/12/16 07:58 Room Air 10/12/16 07:55 95.7 82 19 174/81 92 I/O 10/12/16 10/12/16 10/12/16 10/13/16 10/13/16 10/13/16 07:00 15:00 23:00 07:00 15:00 23:00 Intake Total 480 ml 3162 ml 240 ml Output Total 450 ml 300 ml Balance 30 ml 3162 ml -60 ml Intake Oral 480 ml 960 ml 240 ml IV Total 2202 ml Output Urine Total 450 ml 300 ml # Voids 2 # Bowel Movements 0 0 0 Result Diagram: 10/11/16 0536 Imaging Last 24 hours Impressions Chest X-Ray 10/07/16 0000 Signed Impressions: Service Date/Time: October 08:33 - CONCLUSION: No pneumothorax is visualized. Lungs are underinflated with mild atelectasis at the lung bases. Laureano Haynes MD Thoracic Spine CT 10/06/16 1656 Signed Impressions: Service Date/Time: Thursday, October 06, 2016 17:14 - CONCLUSION: 1. No fracture or dislocation. 2. 8 mm soft tissue nodule on the left neural foramen at T4. This likely relates to a small schwannoma. An outpatient followup MRI of the thoracic spine with and without gadolinium suggested. Gus Cornelius Jr., MD Maxillofacial CT 10/06/161655 Signed Impressions: Service Date/Time: Thursday, October 06, 2016 17:06 - CONCLUSION: No evidence of fracture. Taz Cárdenas MD Lumbar Spine CT 10/06/161655 Signed Impressions: Service Date/Time: Thursday, October 06, 2016 17:14 - CONCLUSION: 1. Mild multilevel degenerative disc disease with marginal spurring at multiple mid and lower lumbar levels. 2. No acute fracture. Minimal Grade I retrolisthesis of L5 on S1 is probably due to facet degeneration. 3. Mild, diffuse disc bulge at L4-5 with facet hypertrophy minimally encroaches on the spinal canal but the spinal canal and neural foramina appear to be adequate throughout. 4. Not mentioned above, mild ectasia of the distal aorta measuring 2.7 cm in the greatest AP dimension just above the bifurcation. No aneurysmal disease. Darryl Cordero MD Head CT 10/06/161655 Signed Impressions: Service Date/Time: Thursday, October 06, 2016 17:06 - CONCLUSION: No acute intracranial findings. Taz Cárdenas MD Chest CT 10/06/161655 Signed Impressions: Service Date/Time: Thursday, October 06, 2016 17:14 - CONCLUSION: Third and fifth rib fractures on the right. Very small right pneumothorax. Taz Cárdenas MD Cervical Spine CT 10/06/161655 Signed Impressions: Service Date/Time: Thursday, October 06, 2016 17:06 - CONCLUSION: No evidence of fracture. Taz Cárdenas MD Abdomen/Pelvis CT 10/06/161655 Signed Impressions: Service Date/Time: Thursday, October 06, 2016 17:14 - CONCLUSION: 1. Multiple rounded hypodensities in the right lobe of the liver. This finding is nonspecific and may represent multiple cysts, ductal dilatation or other hepatic lesions. Not a typical finding for acute traumatic injury. Recommend routine followup abdominal MRI with and without contrast. 2. No other acute findings in the abdomen and pelvis. Taz Cárdenas MD Objective Remarks Left upper extremity: Long arm splint intact. Distally intact sensation over the radial ulnar and median nerve distributions with good capillary refills Left lower extremity: Clean dressings intact with external fixator in place. Swelling +1. Intact sensation distally in all his toes and is able to move all toes appropriately Assessment & Plan Assessment and Plan 1) Left tibial pilon fracture s/p ORIF with revision of external fixation - POD 2 2) Left elbow dislocation -resplinted on 10/11/2016 -NWB LLE -OK for platform walker left arm, otherwise NWB -[employer] to resplint today to free hand for use of walker -pin care BID LLE -maintain splint left arm after resplinted -daily dressing changes to LLE -DVT prophylaxis with lovenox. transition to Xarelto on discharge -plan for exfix to remain on ankle for 6-8 weeks -CM for discharge planning to SNF -ortho clear for discharge to SNF once arrangements made -f/u with [facility] or [facility] in 2 weeks Bubba Lion Oct 13, 2016 06:33
[2016-10-13] MEDS ORDERED: WALKER/ADULT/FO1 MIS (06:38)
[2016-10-13] MEDS: REMOVE OLD LIDOCAINE PATCH T-DERMAL SCH (08:00)
[2016-10-13] MEDS: SODIUM CHLORIDE 0.9% FLUSH 5 ML FLUSH IVF SCH ×4 (09:00→21:00)
[2016-10-13] MEDS: ENOXAPARIN SODIUM 40 MG/0.4 ML SYRINGE SQ SCH (09:17)
[2016-10-13] MEDS: FAMOTIDINE 20 MG TAB PO SCH ×2 (09:17→22:14)
[2016-10-13] MEDS: LISINOPRIL 20 MG TAB PO SCH (09:17)
[2016-10-13] MEDS: METHOCARBAMOL 500 MG TAB PO SCH ×3 (09:17→23:56)
[2016-10-13] MEDS: METOPROLOL TARTRATE 25 MG TAB PO SCH ×2 (09:17→22:14)
[2016-10-13] MEDS: DOCUSATE SODIUM 50 MG/SENNA 8.6 MG TAB PO SCH ×2 (09:18→22:14)
[2016-10-13] MEDS: LIDOCAINE HCL 5% PATCH T-DERMAL SCH (09:19)
[2016-10-13] MEDS: ceFAZolin 2 GM PREMIX 50 ML IV SCH (09:20)
[2016-10-13] MEDS: BACITRACIN TOP OINT 15 GM TUBE TOP SCH (09:21)
[2016-10-13] MEDS: HYDROmorphone HCL PF 1 MG/ML VIAL IVP PRN (10:47)
--- NOTE | 2016-10-13 11:47 | HHI.PR ---
Subjective Subjective Notes Still reports significant left ankle pain Objective Vitals/I&O Vital Signs Date Time Temp Pulse Resp B/P Pulse Ox O2 Delivery O2 Flow Rate FiO2 10/13/16 09:30 92 21 10/13/16 07:13 98.0 80 18 178/82 10/12/16 07:58 Room Air 10/11/16 15:43 2.00 Labs Laboratory Tests Test 10/08/16 10/09/16 10/11/16 10/13/16 20:55 06:09 05:36 13:55 Hepatitis A IgM Antibody NEGATIVE Hepatitis B Surface Antigen NEGATIVE Hepatitis B Core IgM Antibody NEGATIVE Hepatitis C Antibody REACTIVE Triglycerides Level 182 MG/DL Cholesterol Level 157 MG/DL LDL Cholesterol 81 MG/DL HDL Cholesterol 39.5 MG/DL Cholesterol/HDL Ratio 3.97 RATIO Total Bilirubin 0.7 MG/DL Aspartate Amino Transf 65 U/L (AST/SGOT) Alanine Aminotransferase 73 U/L (ALT/SGPT) Alkaline Phosphatase 70 U/L Total Protein 5.9 GM/DL Albumin 2.2 GM/DL White Blood Count 12.6 TH/MM3 Red Blood Count 3.72 MIL/MM3 Hemoglobin 11.3 GM/DL Hematocrit 34.9 % Mean Corpuscular Volume 93.8 FL Mean Corpuscular Hemoglobin 30.4 PG Mean Corpuscular Hemoglobin 32.4 % Concent Red Cell Distribution Width 14.2 % Platelet Count 354 TH/MM3 Mean Platelet Volume 8.4 FL Sodium Level 137 MEQ/L Potassium Level 3.9 MEQ/L Chloride Level 103 MEQ/L Carbon Dioxide Level 29.5 MEQ/L Anion Gap 5 MEQ/L Blood Urea Nitrogen 19 MG/DL Creatinine 0.83 MG/DL Estimat Glomerular Filtration 99 ML/MIN Rate Random Glucose 100 MG/DL Calcium Level 8.2 MG/DL Radiology Last Impressions Chest X-Ray 10/07/16 0000 Signed Impressions: Service Date/Time: October 08:33 - CONCLUSION: No pneumothorax is visualized. Lungs are underinflated with mild atelectasis at the lung bases. Laureano Haynes MD Ankle X-Ray 10/07/16 0000 Signed Impressions: Service Date/Time: October 12:08 - CONCLUSION: Distal tibia and fibular fractures again seen. Taz Cárdenas MD Thoracic Spine CT 5/1655 Signed Impressions: Service Date/Time: Thursday, October 06, 2016 17:14 - CONCLUSION: 1. No fracture or dislocation. 2. 8 mm soft tissue nodule on the left neural foramen at T4. This likely relates to a small schwannoma. An outpatient followup MRI of the thoracic spine with and without gadolinium suggested. Gus Cornelius Jr., MD Maxillofacial CT 10/06/161655 Signed Impressions: Service Date/Time: Thursday, October 06, 2016 17:06 - CONCLUSION: No evidence of fracture. Taz Cárdenas MD Lumbar Spine CT 10/06/161655 Signed Impressions: Service Date/Time: Thursday, October 06, 2016 17:14 - CONCLUSION: 1. Mild multilevel degenerative disc disease with marginal spurring at multiple mid and lower lumbar levels. 2. No acute fracture. Minimal Grade I retrolisthesis of L5 on S1 is probably due to facet degeneration. 3. Mild, diffuse disc bulge at L4-5 with facet hypertrophy minimally encroaches on the spinal canal but the spinal canal and neural foramina appear to be adequate throughout. 4. Not mentioned above, mild ectasia of the distal aorta measuring 2.7 cm in the greatest AP dimension just above the bifurcation. No aneurysmal disease. Darryl Cordero MD Head CT 10/06/161655 Signed Impressions: Service Date/Time: Thursday, October 06, 2016 17:06 - CONCLUSION: No acute intracranial findings. Taz Cárdenas MD Chest CT 10/06/161655 Signed Impressions: Service Date/Time: Thursday, October 06, 2016 17:14 - CONCLUSION: Third and fifth rib fractures on the right. Very small right pneumothorax. Taz Cárdenas MD Cervical Spine CT 10/06/161655 Signed Impressions: Service Date/Time: Thursday, October 06, 2016 17:06 - CONCLUSION: No evidence of fracture. Taz Cárdenas MD Abdomen/Pelvis CT 10/06/161655 Signed Impressions: Service Date/Time: Thursday, October 06, 2016 17:14 - CONCLUSION: 1. Multiple rounded hypodensities in the right lobe of the liver. This finding is nonspecific and may represent multiple cysts, ductal dilatation or other hepatic lesions. Not a typical finding for acute traumatic injury. Recommend routine followup abdominal MRI with and without contrast. 2. No other acute findings in the abdomen and pelvis. Taz Cárdenas MD Radius/Ulna X-Ray 10/06/16 0000 Signed Impressions: Service Date/Time: Thursday, October 06, 2016 16:32 - CONCLUSION: Complete radial dislocation of the elbow joint. Darryl Cordero MD Pelvis X-Ray 10/06/16 0000 Signed Impressions: Service Date/Time: Thursday, October 06, 2016 16:32 - CONCLUSION: No acute osseous injury. Darryl Cordero MD Elbow X-Ray 10/06/16 0000 Signed Impressions: Service Date/Time: Thursday, October 06, 2016 16:32 - CONCLUSION: 1. Successful reduction of the previously dislocated elbow. 2. Radiopaque densities along the anterior aspect of the elbow joint may represent small avulsion fractures or radiopaque foreign bodies in the overlying soft tissues. Additional views would be useful for further evaluation if clinically warranted. Darryl Cordero MD Narrative Exam GENERAL: 50 year old well-nourished male lying in bed. SKIN: Warm and dry. Scattered abrasions noted to LEFT face. CARDIOVASCULAR: Regular rate and rhythm. RESPIRATORY: No accessory muscle use. Clear and diminished to auscultation. Breath sounds equal bilaterally. GASTROINTESTINAL: Abdomen soft, non-tender, nondistended. MUSCULOSKELETAL: Extremities without cyanosis, +1 edema LLE. LLE ex-fix in place. MAMARCO. SUKHJINDERE soft splint in place with sling. + pulses x4. Right forearm dressing removed, ryne C/D/I. NEUROLOGICAL: Awake and alert. Normal speech. A/P Assessment and Plan INJURIES: LEFT tib/fib fx RIGHT rib fxs (3,4) Small RIGHT PTX RIGHT forearm avulsion (sutures) LEFT elbow dislocation 10/06: LEFT elbow reduced 10/07: LEFT ankle reduction and placement of external fixator 10/11: Left tibia ORIF with revision of ex-fix PMHx: Tobacco abuse, HTN Diet: Regular tolerating. Pain controlled Pulm: IS, encouraged use Pain: Robaxin, Lidoderm patch, Motrin. Changed Portia to Roxicodone and added Neurontin for better pain control. DC IV Dilaudid. Activity: OOB. PT and OT evaluating. (NWB LUE, NWB LLE). GI: Pepcid Bowel: Mara-colace 2 tabs BID, MOM. LBM 10/11 DVT: SCDs, Lovenox 40mg daily LEFT tib/fib fx Orthopedics consulted and cleared for discharge 10/07: LEFT ankle reduction and placement of external fixator 10/11: Left tibia ORIF with revision of ex-fix Ex-fix to remain on for 8-10 weeks per Ortho Pin care BID NWB LLE Ice, elevate PT- OOB- rehabilitation placement Pain control Lovenox RIGHT rib fxs Pain control Supportive care Pulmonary toileting OOB Small RIGHT PTX Resolved without intervention 10/07: CXR shows no PTX, mild atelectasis Pulmonary toileting RIGHT forearm avulsion Cleanse with soap and water daily. May leave open to air, unless draining [place] to be removed on 10/17 LEFT elbow dislocation Reduced in ED F/U X-ray shows good alignment NWB LUE- splint, sling Supportive care Pain control OT HTN No home HTN meds Hospitalist consult for medical management Pain control Wound care for abrasions: Cleanse daily with soap and water. Leave open to air , May cover with dry dressing if draining. Case management consulted to assist with discharge planning. [facility] has accepted patient for placement. Plan to discharge in the am if his pain is controlled. Attending Statement The exam, history, and the medical decision-making described in the above note were completed with the assistance of the mid-level provider. I reviewed and agree with the findings presented. I attest that I had a [id number] encounter with the patient on the same day, and personally performed and documented my assessment and findings in the medical record. Vinny De Jesus Oct 13, 2016 11:47 Rigo Torres MD Oct 13, 2016 16:15
[2016-10-13] MEDS: IBUPROFEN 800 MG TAB PO SCH ×2 (12:47→22:15)
[2016-10-13 14:18] LABS: HEMATOCRIT 34.9 % (39.0-51.0); MEAN CELL VOLUME 93.8 FL (80.0-100.0); MEAN CORPUSCULAR HEMOGLOBIN 30.4 PG (27.0-34.0); MEAN CORPUSCULAR HGB CONC 32.4 % (32.0-36.0); PLATELET COUNT 354 TH/MM3 (150-450); RED BLOOD COUNT 3.72 MIL/MM3 (4.50-5.90); RED CELL DISTRIBUTION WIDTH 14.2 % (11.6-17.2); WHITE BLOOD COUNT 12.6 TH/MM3 (4.0-11.0)
[2016-10-13 14:21] LABS: REVIEW FLAG FINAL
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
[2016-10-13 14:33] LABS: BICARBONATE 29.5 MEQ/L (21.0-32.0); POTASSIUM 3.9 MEQ/L (3.5-5.1)
[2016-10-13] MEDS ORDERED: GABAPENTIN 400 MG CAP PO SCH (15:00)
[2016-10-13] MEDS ORDERED: METH500T3 PO (15:03)
[2016-10-13] MEDS ORDERED: CLON.1 PO (15:03)
[2016-10-13] MEDS ORDERED: OXYC-395 PO (15:03)
[2016-10-13] MEDS ORDERED: OXYC-392 PO (15:03)
[2016-10-13] MEDS ORDERED: LISI-515 PO (15:03)
[2016-10-13] MEDS ORDERED: LIDO5DIS5 T-DERMAL (15:03)
[2016-10-13] MEDS ORDERED: METO25TA3 PO (15:03)
[2016-10-13] MEDS ORDERED: SENN1TAB PO (15:03)
[2016-10-13] MEDS ORDERED: ENOX40P SQ (15:03)
[2016-10-13] MEDS ORDERED: HYDR-3800 PO (15:03)
[2016-10-14 00:10] VITALS: BP 142/67; PULSE 85; RESP 17; TEMP 98.5; O2SAT 95
[2016-10-14 04:10] VITALS: BP 173/79; PULSE 71; RESP 17; TEMP 96.8; O2SAT 95
[2016-10-14] MEDS: IBUPROFEN 800 MG TAB PO SCH (06:45)
[2016-10-14] MEDS: cloNIDine HCL 0.1 MG TAB PO SCH ×2 (06:46→11:47)
[2016-10-14] MEDS: hydrALAZINE HCL 50 MG TAB PO SCH (06:46)
--- NOTE | 2016-10-14 06:58 | PD.ORT.PN ---
Subjective Subjective Remarks s/p left elbow dislocation POD 3 s/p ORIF left tibial pilon with exfix revision doing well. pain controlled. progressing. out of bed with walker. states family is out of town on vacation until next tuesday. Objective Vitals Vital Signs Date Time Temp Pulse Resp B/P Pulse Ox O2 Delivery O2 Flow Rate FiO2 10/14/16 04:10 96.8 71 17 173/79 95 10/14/16 00:10 98.5 85 17 142/67 95 10/13/16 23:15 16 10/13/16 23:15 16 10/13/16 21:05 93 21 10/13/16 20:10 98.3 85 18 172/75 95 10/13/16 16:00 97.3 77 18 174/78 93 10/13/16 11:23 96.2 77 18 195/86 92 10/13/16 09:30 92 21 10/13/16 07:13 98.0 80 18 178/82 92 I/O 10/13/16 10/13/16 10/13/16 10/14/16 10/14/16 10/14/16 07:00 15:00 23:00 07:00 15:00 23:00 Intake Total 240 ml 2000 ml 240 ml 240 ml Output Total 500 ml 600 ml 1200 ml Balance -260 ml 2000 ml -360 ml -960 ml Intake Oral 240 ml 960 ml 240 ml 240 ml IV Total 1040 ml Output Urine Total 500 ml 600 ml 1200 ml # Voids 4 # Bowel Movements 0 0 0 1 Result Diagram: 10/13/16 1355 10/13/16 1355 Imaging Last 24 hours Impressions Chest X-Ray 10/07/16 0000 Signed Impressions: Service Date/Time: October 08:33 - CONCLUSION: No pneumothorax is visualized. Lungs are underinflated with mild atelectasis at the lung bases. Laureano Haynes MD Thoracic Spine CT 10/06/16 1656 Signed Impressions: Service Date/Time: Thursday, October 06, 2016 17:14 - CONCLUSION: 1. No fracture or dislocation. 2. 8 mm soft tissue nodule on the left neural foramen at T4. This likely relates to a small schwannoma. An outpatient followup MRI of the thoracic spine with and without gadolinium suggested. Gus Cornelius Jr., MD Maxillofacial CT 10/06/161655 Signed Impressions: Service Date/Time: Thursday, October 06, 2016 17:06 - CONCLUSION: No evidence of fracture. Taz Cárdenas MD Lumbar Spine CT 10/06/161655 Signed Impressions: Service Date/Time: Thursday, October 06, 2016 17:14 - CONCLUSION: 1. Mild multilevel degenerative disc disease with marginal spurring at multiple mid and lower lumbar levels. 2. No acute fracture. Minimal Grade I retrolisthesis of L5 on S1 is probably due to facet degeneration. 3. Mild, diffuse disc bulge at L4-5 with facet hypertrophy minimally encroaches on the spinal canal but the spinal canal and neural foramina appear to be adequate throughout. 4. Not mentioned above, mild ectasia of the distal aorta measuring 2.7 cm in the greatest AP dimension just above the bifurcation. No aneurysmal disease. Darryl Cordero MD Head CT 10/06/161655 Signed Impressions: Service Date/Time: Thursday, October 06, 2016 17:06 - CONCLUSION: No acute intracranial findings. Taz Cárdenas MD Chest CT 10/06/161655 Signed Impressions: Service Date/Time: Thursday, October 06, 2016 17:14 - CONCLUSION: Third and fifth rib fractures on the right. Very small right pneumothorax. Taz Cárdenas MD Cervical Spine CT 10/06/161655 Signed Impressions: Service Date/Time: Thursday, October 06, 2016 17:06 - CONCLUSION: No evidence of fracture. Taz Cárdenas MD Abdomen/Pelvis CT 10/06/161655 Signed Impressions: Service Date/Time: Thursday, October 06, 2016 17:14 - CONCLUSION: 1. Multiple rounded hypodensities in the right lobe of the liver. This finding is nonspecific and may represent multiple cysts, ductal dilatation or other hepatic lesions. Not a typical finding for acute traumatic injury. Recommend routine followup abdominal MRI with and without contrast. 2. No other acute findings in the abdomen and pelvis. Taz Cárdenas MD Objective Remarks Left upper extremity: Long arm splint intact. Distally intact sensation over the radial ulnar and median nerve distributions with good capillary refills Left lower extremity: Clean dressings intact with external fixator in place. Swelling +1. Intact sensation distally in all his toes and is able to move all toes appropriately Assessment & Plan Assessment and Plan 1) Left tibial pilon fracture s/p ORIF with revision of external fixation - POD 3 2) Left elbow dislocation -resplinted on 10/11/2016 -NWB LLE -OK for platform walker left arm, otherwise NWB -pin care BID LLE -maintain splint left arm -daily dressing changes to LLE -DVT prophylaxis with lovenox. transition to Xarelto on discharge -plan for exfix to remain on ankle for 6-8 weeks -CM for discharge planning to SNF -ortho clear for discharge to SNF once arrangements made -f/u with [facility] or [facility] in 2 weeks Bubba Lion Oct 14, 2016 06:57
[2016-10-14 08:00] VITALS: BP 168/79; PULSE 82; RESP 20; TEMP 98.3; O2SAT 94
[2016-10-14] MEDS: REMOVE OLD LIDOCAINE PATCH T-DERMAL SCH (08:00)
[2016-10-14] MEDS ORDERED: NEUR400C PO (08:40)
[2016-10-14] MEDS: cloNIDine HCL 0.1 MG TAB PO PRN (08:43)
[2016-10-14] MEDS: DOCUSATE SODIUM 50 MG/SENNA 8.6 MG TAB PO SCH (08:43)
[2016-10-14] MEDS: METOPROLOL TARTRATE 25 MG TAB PO SCH (08:44)
[2016-10-14] MEDS: METHOCARBAMOL 500 MG TAB PO SCH (08:45)
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
[2016-10-14] MEDS: FAMOTIDINE 20 MG TAB PO SCH (08:50)
[2016-10-14] MEDS: GABAPENTIN 300 MG CAP PO SCH ×2 (08:50→11:47)
[2016-10-14] MEDS: ENOXAPARIN SODIUM 40 MG/0.4 ML SYRINGE SQ SCH (08:51)
[2016-10-14] MEDS: LIDOCAINE HCL 5% PATCH T-DERMAL SCH (08:51)
[2016-10-14] MEDS: LISINOPRIL 20 MG TAB PO SCH (08:51)
[2016-10-14] MEDS: SODIUM CHLORIDE 0.9% FLUSH 5 ML FLUSH IVF SCH ×2 (08:57)
[2016-10-14] MEDS ORDERED: CLON.1 PO (11:10)
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
[2016-10-26] MEDS ORDERED: GETGO ROLLING W1 MI1 (08:28)
[2016-10-26] MEDS ORDERED: COMMODE 3-IN-11 MIS (08:28)
[2016-10-26] MEDS ORDERED: WHEEMIS3 (08:28)
[2016-10-26] MEDS ORDERED: GABA600T PO (13:46)
[2016-10-26] MEDS ORDERED: OXYC-395 PO (13:46)
[2016-10-26] MEDS ORDERED: VITA2000 PO (13:46)
[2016-10-26] MEDS ORDERED: CALCTAB19 PO (13:46)
[2016-10-26] MEDS ORDERED: METO25TA3 PO (13:46)
[2016-10-26] MEDS ORDERED: MORP1TAB25 PO (13:46)
[2016-10-26] MEDS ORDERED: SENN1TAB PO (13:46)
[2016-10-26] MEDS ORDERED: LISI10TA3 PO (13:46)
[2016-10-26] MEDS ORDERED: METH500T3 PO (13:46)
== END 2016-10-14 12:11 | DRG 493 ==
LOC: NEPI 16:37 → MERGE 19:06 → EDBD 19:06 → NEDA 19:06 → N06B 21:27
PROVIDERS: ADMIT Surgery; ATTEND Surgery
PROC: 05H533Z Insertion of Infusion Device into Right Subclavian Vein, Percutaneous Approach (ICD-10-PCS; 2016-10-06)
PROC: 0RSMXZZ Reposition Left Elbow Joint, External Approach (ICD-10-PCS; 2016-10-06)
PROC: 0QSH35Z Reposition Left Tibia with External Fixation Device, Percutaneous Approach (ICD-10-PCS; 2016-10-07)
PROC: 0QSKXZZ Reposition Left Fibula, External Approach (ICD-10-PCS; 2016-10-07)
PROC: 0HQDXZZ Repair Right Lower Arm Skin, External Approach (ICD-10-PCS; principal; 2016-10-09)
PROC: 0QSH04Z Reposition Left Tibia with Internal Fixation Device, Open Approach (ICD-10-PCS; 2016-10-11)
PROC: 0QSK04Z Reposition Left Fibula with Internal Fixation Device, Open Approach (ICD-10-PCS; 2016-10-11)
DX: S82.832A Other fracture of upper and lower end of left fibula, initial encounter for closed fracture (principal); S27.0XXA Traumatic pneumothorax, initial encounter; S22.41XA Multiple fractures of ribs, right side, initial encounter for closed fracture; S01.81XA Laceration without foreign body of other part of head, initial encounter; S82.872A Displaced pilon fracture of left tibia, initial encounter for closed fracture; S53.105A Unspecified dislocation of left ulnohumeral joint, initial encounter; I10 Essential (primary) hypertension; H11.31 Conjunctival hemorrhage, right eye; S51.811A Laceration without foreign body of right forearm, initial encounter; V29.49XA Motorcycle driver injured in collision with other motor vehicles in traffic accident, initial encounter; Y92.488 Other paved roadways as the place of occurrence of the external cause; Y93.89 Activity, other specified; Y99.9 Unspecified external cause status; F17.210 Nicotine dependence, cigarettes, uncomplicated; M17.12 Unilateral primary osteoarthritis, left knee; R73.9 Hyperglycemia, unspecified; E78.5 Hyperlipidemia, unspecified; F43.9 Reaction to severe stress, unspecified; I71.4 Abdominal aortic aneurysm, without rupture
CPT/HCPCS: 12004; 24600; 36556; 70450; 70486; 71010; 71260; 72125; 72128; 72131; 72170; 73090; 73590; 73600; 73700; 74177; 76000; 76705; 76937; 80048; 80053; 80061; 80074; 80307; 82435; 82565; 82947; 83036; 84132; 84295; 84520; 85014; 85018; 85025; 85027; 85610; 85730; 86850; 86900; 86901; 90471; 90715; 94150; 94640; 96374; 96375; 99291; C1713; C9113; G0390; J0131; J0360; J0690; J1100; J1170; J1580; J1650; J1885; J2250; J2270; J2405; J2710; J3010; J3370; J7030; J7050; J7120; J7613; Q9967

== ENCOUNTER → 2016-11-26 | Day surgery (SDC) | payer OTHER, BC ==
[~2016-11-26] VITALS: Ht 177.8 cm; Wt 95.5 kg
[~2016-11-26] MED LIST changes: +*morphine SULFATE 8 MG/ML PERIprocedure ONLY ONE; +CALCTAB19 PO; +CHLORHEXIDINE GLUCONATE 2 % 1 PACK (2 CLOTHS) TOPICAL PRN; +CHLORHEXIDINE GLUCONATE 4% SOLN 120 ML BTL TOPICAL SCH; +COMMODE 3-IN-11 MIS; +DEXAMETHASONE SOD PHOS 4 MG/ML VIAL ONE; +DO NOT ADM ANY ANTICOAGULANT DRUGS PRN; +FAMOTIDINE 20 MG/2 ML VIAL ONE; +GABA600T PO; +GETGO ROLLING W1 MI1; +INSULIN HUMAN REGULAR 1,000 UNITS/10 ML VIAL SQ PRN; +KETOROLAC TROMETHAMINE 30 MG/ML (IVP) VIAL IVP ONE; +LACTATED RINGER'S 1000 ML IV PRN; +LISI10TA3 PO; +METH500T3 PO; +METOPROLOL TARTRATE 25 MG TAB PO PRN; +MIDAZOLAM HCL 2 MG/2 ML VIAL ONE; +MORP1TAB25 PO; +MORPHINE SULFATE 4 MG/ML INJ IV PUSH PRN; +ONDANSETRON HCL 4 MG/2 ML VIAL IV PRN; +ONDANSETRON HCL 4 MG/2 ML VIAL IV PUSH ONE; +OXYC-395 PO; +PERC10TA27 PO; +POVIDONE IODINE 5% (ANTISEPSIS KIT) 4 APPLICATIONS EACH NARE PRN; +PROPOFOL 200 MG/20 ML AMP IV ONE; +SENN1TAB PO; +SODIUM CHLORID 0.9% 500 ML IV PRN; +SODIUM CHLORIDE 0.9% FLUSH 10 ML FLUSH IV FLUSH PRN; +SODIUM CHLORIDE 0.9% FLUSH 10 ML FLUSH IV FLUSH SCH; -TRAM50TA PO; +VITA2000 PO; +WALKER/ADULT/FO1 MIS; +WHEEMIS3; +ceFAZolin 2 GM PREMIX 50 ML IV SCH; +oxyCODONE/ACETAMINOPHEN 10 MG/325 MG TAB PO PRN
[2016-11-26 06:30] VITALS: BP 121/76; PULSE 95; RESP 16; TEMP 97.8; O2SAT 95
--- NOTE | 2016-11-26 08:07 | PD.OP ---
cc: Esvin Gonsalez MD Operative Report Date of Surgery: Nov 26, 2016 Preoperative Diagnosis: Comminuted left distal tibia and fibula fractures with retained external fixation Postoperative Diagnosis: Procedure: Removal external fixation left ankle, manipulation under anesthesia left ankle Anesthesia: Gen. Surgeon: Esvin Gonsalez Sawmill Worker(s): TIFF Yousif PA-C Operation and Findings: Plan of activity : Nonweightbearing, active range of motion left ankle Jason is known to me from previous open reduction total fixation and external fixation of left distal tibia-fibula fractures. Informed consent was obtained. Operative site was marked. He is brought to the operating room. He was given IV sedation and general anesthesia. Timeout procedure was performed. Procedure began with removal of external fixation. Clamps were loosened. Clamps and bars were now removed. The pins were now removed with the drill. Fluoroscopy was now used to visualize the fracture. The fracture. To be healing appropriately. The ankle is extremely stiff. The ankle was now gently manipulated. After manipulation I was able to achieve 10 of dorsiflexion and 25 of plantarflexion. Fluoroscopy confirmed the fracture was stable. Sterile dressings were applied. Patient was placed into a fracture boot. He was awakened and transferred to recovery room in stable condition. Esvin Gonsalez MD Nov 26, 2016 08:07
[2016-11-26 10:05] VITALS: BP 114/69; PULSE 86; RESP 18; TEMP 98.2; O2SAT 94
--- NOTE | 2016-11-26 14:47 | RADRPT ---
EXAM DATE/TIME: 11/26/2016 07:51 [facility] COMPARISON: ANKLE LEFT LIMITED (AP&LAT), October 07, 2016, 12:08. INDICATIONS : Left ankle hardware removal. MEDICAL HISTORY : None. SURGICAL HISTORY : External fixator left ankle ENCOUNTER: Initial ACUITY: 1 day PAIN SCORE: Non-responsive. LOCATION: Left Ankle. CONCLUSION: Fluoroscopic images left ankle during placement of screws and plates along the fibula and tibia. Jose Meredith MD on November 26, 2016 at 14:45 Board Certified Radiologist. This report was verified electronically.
== END | disposition home or self-care (01) ==
LOC: HSDC 05:42
PROVIDERS: ATTEND Orthopaedic Surgery Orthopaedic Trauma
DX: S82.252D Displaced comminuted fracture of shaft of left tibia, subsequent encounter for closed fracture with routine healing (principal); S82.452D Displaced comminuted fracture of shaft of left fibula, subsequent encounter for closed fracture with routine healing; Z97.8 Presence of other specified devices; X58.XXXD Exposure to other specified factors, subsequent encounter
CPT/HCPCS: 01462; 20694; 73600; 76000; 97163; G8987; G8988; G8989; J1100; J1885; J2250; J2270; J2405; J3010; J7120; L2114